=== PATIENT | female | born 1975 | race Caucasian/White ===

== ENCOUNTER 2020-03-25 16:37 | Outpatient (CLI) | payer BC, SELFPAY ==
--- NOTE | ~2020-03-25 | MM_ITS ---
EXAMINATION: MM screening leah BI w daisy HISTORY: Screening TECHNIQUE: Craniocaudal and mediolateral oblique 3-D tomosynthesis images were obtained and synthetic 2-D images were generated. CAD analysis was submitted and interpreted. COMPARISON: Comparison to multiple prior studies sequentially, with oldest reviewed study dated 12/24. BREAST PARENCHYMAL COMPOSITION: The breasts are heterogeneously dense, which may obscure small masses . FINDINGS: There is no evidence of suspicious mass, calcification, or architectural distortion to sugg est malignancy in either breast. There has been no suspicious interval change. IMPRESSION: 1. No mammographic evidence of malignancy. 2. Recommend routine screening mammography in one year. BI-RADS Category 1: Negative Reviewed, dictated and finalized at location A.
== END 2020-03-25 16:38 | disposition home or self-care (01) ==
LOC: ANHIMG 16:40
PROVIDERS: PCP Family Medicine; Visit Provider Family Medicine
DX: Z12.31 Encounter for screening mammogram for malignant neoplasm of breast (principal)
CPT/HCPCS: 77063; 77067

== ENCOUNTER 2020-10-20 19:58 | Emergency (ER) | payer BC, SELFPAY ==
--- NOTE | ~2020-10-20 | XR_ITS ---
EXAMINATION: XR finger 2nd RT min 2V INDICATION: Right second finger pain TECHNIQUE: Four views of the right second finger are obtained. COMPARISON: None available FINDINGS: There is no fracture, dislocation, or subluxation. The bones, soft tissues, and joint space s are normal. IMPRESSION: 1. No acute osseous abnormality. Reviewed, dictated and finalized at location A.
[2020-10-20 20:01] VITALS: BP 139/87; PULSE 100; RESP 18; TEMP 36.5; O2SAT 100
[2020-10-20] MEDS: KETOROLAC 30 MG/ML VIAL (*BKC) IM (21:48)
--- NOTE | 2020-10-20 22:04 | ED.UPPEXIN ---
HPI - Extremity Injury (Upper) General Chief Complaint: Extremity Injury, Upper Stated Complaint: finger injury Time Seen by Provider: 10/20/20 20:06 Source: patient Mode of arrival: ambulatory Limitations: no limitations History of Present Illness HPI narrative: Patient is a 45 year old female who presents with injury to right index finger. She reports injuring while playing ball. She reports attempting to catch ball when extraocular finger. She denies taking otc medication prior to arrival. Patient denies other complaints. Related Data Allergies Allergy/AdvReac Type Severity Reaction Status Date / Time Sulfa (Sulfonamide Allergy Unknown Unknown Verified 12/11/19 15:51 Antibiotics) Review of Systems Review of Systems: Narrative: CONSTITUTIONAL: Denies fever, chills, or sweats. EYES: Denies visual changes, redness, or discharge. ENT: Denies rhinorrhea, congestion, sore throat, or otalgia. CARDIOVASCULAR: Denies chest pain, palpitations, or edema. RESPIRATORY: Denies cough or dyspnea. GASTROINTESTINAL: Denies abdominal pain, nausea, vomiting, or diarrhea. GENITOURINARY: Denies dysuria or hematuria. SKIN: Denies rash or itching. MUSCULOSKELETAL: Right index finger pain NEUROLOGIC: Denies headache, numbness, dizziness, or weakness. PSYCHIATRIC: Denies anxiety or depression. [facility] Past Medical History Medical History Anxiety Asthma Depression Lyme disease Multiple kidney stones Peripheral neuropathy UTI (urinary tract infection) Surgical History Surgical History (Updated 10/20/20 @ 22:12 by DAV Cherry) History of lateral meniscus repair of right knee History of placement of ear tubes Hx of tonsillectomy Family History Family History Mother Depression Grandparent Family history of coronary artery disease Other Hypertension Social History Social History Smoking status: Smoker, status unknown Second hand tobacco smoke exposure: Yes Alcohol intake: current Gender identity (if verbalized by the patient): Male Comments At the time of signature, I have reviewed and agree with nursing past medical, surgical, social, and family history unless otherwise noted. Please see nursing chart for further information. There is no relevant family history pertinent to the presenting complaint. Exam Narrative: Exam Narrative: GENERAL: Well-appearing, well-nourished, and in no acute distress. HEAD: Normocephalic, atraumatic. EYES: EOMI. No redness or drainage. Conjunctiva are normal. ENT: Mucous membranes pink and moist. CHEST: No respiratory distress. HEART: Regular rate and rhythm. MUSCULOSKELETAL: Subungual hematoma to right index finger. EXTREMITIES: Normal range of motion. No edema. SKIN: Warm, dry, no rash. NEURO: No focal deficits. Alert and oriented x3. Gait steady. PSYCH: Normal affect. No signs of depression or anxiety. Course Vital Signs Vital signs: Vital Signs Temperature 36.5 C 10/20/20 20:01 Pulse Rate 100 10/20/20 20:01 Respiratory Rate 18 10/20/20 20:01 Blood Pressure 139/87 10/20/20 20:01 Pulse Oximetry 100 10/20/20 20:01 Temperature 36.5 C 10/20/20 20:01 Pulse Rate 100 10/20/20 20:01 Respiratory Rate 18 10/20/20 20:01 Blood Pressure 139/87 10/20/20 20:01 Pulse Oximetry 100 10/20/20 20:01 Reviewed-patient is informed that they may have pre-hypertension or hypertension based on a blood pressure reading. I recommend the patient call the primary care provider listed on their discharge instructions or a physician of their choice this week to arrange follow-up for further evaluation of possible pre-hypertension or hypertension. MDM - Extremity Injury (Upper) MDM Narrative Medical decision making narrative: Needle trephination performed to the right index finger. Patient
[2020-10-20 22:05] VITALS: BP 127/81; PULSE 81; RESP 18; O2SAT 98
== END 2020-10-20 22:05 | disposition home or self-care (01) ==
PROVIDERS: Emergency Provider Nurse Practitioner; PCP Family Medicine
DX: S60.021A Contusion of right index finger without damage to nail, initial encounter (principal); F41.9 Anxiety disorder, unspecified; J45.909 Unspecified asthma, uncomplicated; F32.9 Major depressive disorder, single episode, unspecified; Z87.442 Personal history of urinary calculi; W21.00XA Struck by hit or thrown ball, unspecified type, initial encounter
CPT/HCPCS: 11740; 73140; 96372; 99283; J1885

== ENCOUNTER 2020-12-23 11:05 | Outpatient (CLI) | payer BC, SELFPAY ==
--- NOTE | ~2020-12-23 | XR_ITS ---
EXAMINATION: XR chest 2V 12/23/2020 11:37 INDICATION: Cough and shortness of breath for one month PROCEDURE: 2 view chest COMPARISON: 07/05/2015 FINDINGS: The lungs are clear. The cardiomediastinal silhouette is within normal limits. There are no pleural effusions. There is no pneumothorax suspected. IMPRESSION: 1: NO ACUTE CARDIOPULMONARY DISEASE. Reviewed, dictated and finalized at location B.
== END 2020-12-23 11:06 | disposition home or self-care (01) ==
PROVIDERS: PCP Family Medicine; Visit Provider Nurse Practitioner Family
DX: R05 Cough (principal)
CPT/HCPCS: 71046

== ENCOUNTER 2021-04-09 14:27 | Outpatient (CLI) | payer BC, SELFPAY ==
--- NOTE | ~2021-04-09 | MM_ITS ---
EXAMINATION: MM screening leah BI w daisy HISTORY: Screening mammogram TECHNIQUE: Craniocaudal and mediolateral oblique 3-D tomosynthesis images were obtained and synthetic 2-D images were generated. CAD analysis was submitted and interpreted. COMPARISON: 03/25/2020, 01/24/2019, 12/28/2017 bilateral digital screening mammogram examinations BREAST PARENCHYMAL COMPOSITION: The breasts are heterogeneously dense, which may obscure small masses . FINDINGS: There is no evidence of suspicious mass, calcification, or architectural distortion to sugg est malignancy in either breast. There has been no suspicious interval change. IMPRESSION: 1. No mammographic evidence of malignancy. 2. Recommend routine screening mammography in one year. BI-RADS Category 1: Negative Reviewed, dictated and finalized at location A.
== END 2021-04-09 14:28 | disposition home or self-care (01) ==
PROVIDERS: PCP Family Medicine; Visit Provider Family Medicine
DX: Z12.31 Encounter for screening mammogram for malignant neoplasm of breast (principal)
CPT/HCPCS: 77063; 77067

== ENCOUNTER 2021-05-14 14:30 | Emergency (ER) | payer BC, SELFPAY ==
[2021-05-14] VITALS (7 sets, daily range): BP systolic 147–150; BP diastolic 95–102; PULSE 101–119; RESP 20–21; TEMP 36.7; O2SAT 93–94
--- NOTE | ~2021-05-14 | XR_ITS ---
EXAMINATION: XR chest 1V portable DATE: 05/14/2021 15:21 INDICATION: Cough and shortness of breath. TECHNIQUE: A single frontal view of the chest was obtained. COMPARISON: Chest 2 views 12/23/2020 FINDINGS: There is mild scarring at the lung apices. No pleural effusion or pneumothorax. The heart s ize is normal. IMPRESSION: 1. Stable mild scarring at the lung apices. Reviewed, dictated and finalized at location A.
--- NOTE | 2021-05-14 15:19 | ED.ASTHMA ---
HPI - Asthma General Chief Complaint: Asthma <Mamie Murillo PA-C - Last Filed: 05/14/21 19:33> Stated Complaint: Asthma <Mamie Murillo PA-C - Last Filed: 05/14/21 19:33> Time Seen by Provider: 05/14/21 15:04 <Mamie Murillo PA-C - Last Filed: 05/14/21 19:33> Source: patient <Mamie Murillo PA-C - Last Filed: 05/14/21 19:33> Mode of arrival: ambulatory <Mamie Murillo PA-C - Last Filed: 05/14/21 19:33> Limitations: no limitations <COLTON Goel Last Filed: 05/14/21 19:33> History of Present Illness HPI Narrative: This is a 45 year old female that presents to the ER for asthma exacerbation. Reports she has been struggling with asthma for the last couple of months. She has to use her Albuterol inhaler multiple times daily. She has not been using her Breo inhaler because she does not think it helps. Reports she has been having some coughing since yesterday which seems to have brought on another exacerbation. Denies fever or chest pain. <Mamie Murillo PA-C - Last Filed: 05/14/21 19:33> Related Data Allergies/Adverse Reactions: Allergies Allergy/AdvReac Type Severity Reaction Status Date / Time Sulfa (Sulfonamide Allergy Unknown Unknown Verified 04/09/21 13:14 Antibiotics) <Mamie Murillo PA-C - Last Filed: 05/14/21 19:33> Review of Systems Review of Systems: All systems reviewed & are unremarkable except as noted in HPI and below <Mamie Murillo PA-C - Last Filed: 05/14/21 19:33> [facility] Past Medical History Medical History: Medical History (Updated 05/15/21 @ 00:00 by Background Daemon) Acute cystitis with hematuria Acute non-recurrent maxillary sinusitis Alopecia Anxiety Anxiety and depression Asthma Asthma exacerbation BMI 29.0-29.9,adult BMI 31.0-31.9,adult BMI 34.0-34.9,adult BMI 35.0-35.9,adult BMI over 35 Chronic fatigue Crushing injury of right lower leg, initial encounter Depression Dietary counseling and surveillance (05/22/18) Encounter for screening for lipoid disorders Hematochezia History of kidney stones History of pre-eclampsia Lyme disease Major depressive disorder, single episode, unspecified Multiple kidney stones Nicotine dependence, unspecified, uncomplicated Peripheral neuropathy Positive Lyme disease serology Tobacco abuse UTI (urinary tract infection) Weight gain <Mamie Murillo PA-C - Last Filed: 05/14/21 19:33> Surgical History Surgical History: Surgical History History of lateral meniscus repair of right knee History of placement of ear tubes Hx of tonsillectomy <Mamie Murillo PA-C - Last Filed: 05/14/21 19:33> Family History Family History: Family History Mother Depression Grandparent Family history of coronary artery disease Father No problems noted. Other Hypertension <Mamie Murillo PA-C - Last Filed: 05/14/21 19:33> Social History Social History: Social History Tobacco type: cigarettes Second hand tobacco smoke exposure: Yes Alcohol intake: former Substance use: former Substance use type: marijuana Additional living arrangements comments: and kids Additional occupation/education comments: self employed Gender identity (if verbalized by the patient): Female Sexual Orientation (if Verbalized by the Patient): Straight or Heterosexual Spiritual care concerns: No Agree to blood products: Yes <Mamie Murillo PA-C - Last Filed: 05/14/21 19:33> Exam Narrative: GENERAL: Well-appearing, well-nourished, and in no acute distress. HEAD: Normocephalic, atraumatic. EYES: EOMI. ENT: Nares clear, no rhinorrhea or epistaxis. Mucous membranes moist. Oropharynx without tonsillar hypertrophy exudate or other lesions. Bilateral TMs pearly syed non-bulging NECK: Suppl
[2021-05-14] MEDS: ALBUTEROL SULFATE NEB 2.5 MG/0.5 ML INH 5 MG INHALATION (15:20)
[2021-05-14] MEDS: IPRATROPIUM BR 0.02% INH SOLN 0.5 MG/2.5 ML VIAL INHALATION (15:20)
[2021-05-14] MEDS: methylPREDNISolone SOD SUCC 125 MG VIAL IV PUSH (15:25)
--- NOTE | 2021-05-14 15:54 | PC.NURSE ---
Pt states she feels slight relief after meds where given
--- NOTE | 2021-05-14 17:15 | ECG_ITS ---
Measurements Intervals [place] Rate: 104 P: 60 DC: 134 QRS: 28 QRSD: 89 T: 54 QT: 384 QTc: 506 Interpretive Statements SINUS TACHYCARDIA CANNOT RULE OUT SEPTAL INFARCT, AGE INDETERMINATE BASELINE ARTIFACT- I, II, III, AVR, AVL, AVF, V1, V3-V6 ABNORMAL ECG Electronically Signed On 05-14-2021 20:09:07 CDT by Waldo Reed D.O.
[2021-05-14 17:45] LABS: Alveolar/Arterial O2 Gradient 69.6 mmHg; Base Excess ABG -0.2 mEq/l (+/-2.0); Carboxyhemoglobin 1.7 % THb (0-2.0); Fractional Inspired Oxygen 24 %; HCO3 ABG 22.9 mEq/l (22.0-26.0); Methemoglobin ABG 0.3 %THb (0-1.5); Oxygen Saturation ABG 93.1 % (95.0-100.0); Oxyhemoglobin 90.3 % THb (90.0-100.0); PCO2 ABG 33.1 mmHg (35.0-45.0); PO2 ABG 62.1 mmHg (80.0-100.0); PO2 FiO2 Ratio Arterial Blood 2.59 %; Reduced Hemoglobin 7.7 %THb (0-5.0); Total Hemoglobin 15.8 g/dL (12.0-18.0); pH ABG 7.457 (7.350-7.450)
[2021-05-14 17:46] LABS: Site Drawn LEFT BRACHIAL
[2021-05-14 17:47] LABS: Device NASAL CANNULA
[2021-05-14 18:12] LABS: Basophils Absolute Auto 0.1 K/mm3 (0.0-0.1); Basophils Percent Auto 0.9 % (0.2-1.2); Eosinophils Absolute Auto 0.3 K/mm3 (0-0.3); Eosinophils Percent Auto 2.4 % (0-4.4); Hemoglobin 15.4 g/dL (12.0-15.0); Immature Granulocyte Absolute 0.11 K/mm3 (0.00-0.031); Immature Granulocyte Percent A 0.8 % (0-0.5); Lymphocytes Absolute Auto 1.45 K/mm3 (0.9-3.2); Lymphocytes Percent Auto 11.1 % (18.3-44.2); Mean Corpuscular HGB Conc 34.2 g/dl (32-36); Mean Corpuscular Hemoglobin 28.8 pg (26-34); Mean Corpuscular Volume 84.1 fl (80-100); Monocytes Absolute Auto 0.3 K/mm3 (0.1-0.6); Monocytes Percent Auto 1.9 % (2.6-8.5); Neutrophils Absolute Auto 10.9 K/mm3 (1.3-6.7); Neutrophils Percent Auto 82.9 % (45.5-73.1); Platelet Count Result 369 k/mm3 (150-375); Red Blood Count 5.35 M/mm3 (4.2-5.4); Red Cell Distribution Width 13.4 % (11.5-14.5); White Blood Count 13.1 K/mm3 (4.5-10.0)
[2021-05-14 18:54] LABS: Anion Gap 13 mmol/L (8-16); Blood Urea Nitrogen 18 mg/dL (7-17); Calcium 9.8 mg/dL (8.4-10.2); Carbon Dioxide 19 mmol/L (22-30); Chloride 105 mmol/L (98-107); Estimated CRCL calculation 110 ml/min; Estimated Glomerular Filt Rate > 60; Glucose 125 mg/dL (65-110); Potassium 4.8 mmol/L (3.4-5.0); Sodium 137 mmol/L (137-145)
== END 2021-05-14 19:51 | disposition home or self-care (01) ==
PROVIDERS: Physician Assistant; Emergency Provider Emergency Medicine; PCP Family Medicine
DX: J45.901 Unspecified asthma with (acute) exacerbation (principal); G62.9 Polyneuropathy, unspecified; F41.9 Anxiety disorder, unspecified; F32.9 Major depressive disorder, single episode, unspecified; F17.210 Nicotine dependence, cigarettes, uncomplicated; Z87.442 Personal history of urinary calculi; Z87.440 Personal history of urinary (tract) infections; R00.0 Tachycardia, unspecified; R94.31 Abnormal electrocardiogram [ECG] [EKG]
CPT/HCPCS: 36415; 36600; 71045; 80048; 82375; 82805; 83050; 85025; 93005; 94640; 96374; 99284; J2930

== ENCOUNTER 2021-10-01 15:06 | Outpatient (CLI) | payer BC, SELFPAY ==
--- NOTE | ~2021-10-01 | XR_ITS ---
EXAMINATION: XR chest 2V 10/01/2021 15:25 INDICATION: Cough and shortness of breath. Chest congestion. History of asthma. PROCEDURE: 2 view chest COMPARISON: Comparison to multiple prior studies sequentially, with oldest reviewed study dated 02/10. FINDINGS: The lungs are clear. The cardiomediastinal silhouette is within normal limits. There are no pleural effusions. There is no pneumothorax suspected. IMPRESSION: 1: NO ACUTE CARDIOPULMONARY DISEASE. Reviewed, dictated and finalized at location B.
== END 2021-10-01 15:07 | disposition home or self-care (01) ==
LOC: ANHIMG 15:10
PROVIDERS: PCP Family Medicine; Visit Provider Family Medicine
DX: J40 Bronchitis, not specified as acute or chronic (principal)
CPT/HCPCS: 71046

== ENCOUNTER 2021-12-21 15:50 | Emergency (ER) | payer BC, SELFPAY ==
--- NOTE | ~2021-12-21 | XR_ITS ---
XR knee LT min 4V DATE: 12/21/2021 16:10 INDICATION: Lateral knee pain. No known injury.. TECHNIQUE: 4 views COMPARISON: None FINDINGS: There is minimal periarticular spurring of the patella. Joint spaces are well preserved. No radiopaque intra-articular loose body or chondrocalcinosis. No fracture or dislocation, periosteal reaction or bone destruction. No joint effusion is evident. IMPRESSION: Minimal patellofemoral osteoarthritis Reviewed, dictated and finalized at location A.
[2021-12-21 16:13] VITALS: BP 153/85; PULSE 117; RESP 17; TEMP 36.7; O2SAT 95
--- NOTE | 2021-12-21 17:16 | ED.LOWEXIN ---
HPI - Extremity Injury (Lower) General Chief Complaint: Extremity Injury, Lower Stated Complaint: L KNEE PAIN Time Seen by Provider: 12/21/21 16:31 History of Present Illness HPI Narrative: 46-year-old female presents the emergency room for evaluation of atraumatic left knee pain. Patient describes the pain is sharp and stabbing is worse when she attempts to ambulate. Patient denies any known injury or trauma. Related Data Home Medications Medication Instructions Recorded Confirmed lamotrigine 25 mg tablet 75 mg PO DAILY 11/12/21 11/12/21 Allergies Allergy/AdvReac Type Severity Reaction Status Date / Time Sulfa (Sulfonamide Allergy Unknown Unknown Verified 11/12/21 14:09 Antibiotics) Review of Systems Review of Systems: CONSTITUTIONAL: Denies fever, chills, or sweats. EYES: Denies visual changes, redness, or discharge. ENT: Denies rhinorrhea, congestion, sore throat, or otalgia. CARDIOVASCULAR: Denies chest pain, palpitations, or edema. RESPIRATORY: Denies cough or dyspnea. GASTROINTESTINAL: Denies abdominal pain, nausea, vomiting, or diarrhea. GENITOURINARY: Denies dysuria or hematuria. SKIN: Denies rash or itching. MUSCULOSKELETAL: Reports left knee pain NEUROLOGIC: Denies headache, numbness, dizziness, or weakness. PSYCHIATRIC: Denies anxiety or depression. [facility] Past Medical History Medical History Acute cystitis with hematuria Acute non-recurrent maxillary sinusitis Adult BMI 32.0-32.9 kg/sq m Alopecia Anxiety Anxiety and depression Asthma Asthma Asthma exacerbation BMI 29.0-29.9,adult BMI 31.0-31.9,adult BMI 34.0-34.9,adult BMI 35.0-35.9,adult BMI 36.0-36.9,adult BMI over 35 Bronchitis Chronic fatigue Crushing injury of right lower leg, initial encounter Depression Dietary counseling and surveillance (05/22/18) Encounter for screening for lipoid disorders Hematochezia History of kidney stones History of pre-eclampsia Lyme disease Major depressive disorder, single episode, unspecified Multiple kidney stones Nicotine dependence, unspecified, uncomplicated Obesity Peripheral neuropathy Positive Lyme disease serology Tobacco abuse UTI (urinary tract infection) Weight gain Surgical History Surgical History History of lateral meniscus repair of right knee History of placement of ear tubes Hx of tonsillectomy Family History Family History Mother Depression Grandparent Family history of coronary artery disease Father No problems noted. Sibling Ovarian cancer Other Hypertension Social History Social History Tobacco type: e-cigarettes/vaping Second hand tobacco smoke exposure: Yes Smoking end date: 10/22/21 Alcohol intake: current Substance use: former Substance use type: marijuana Additional living arrangements comments: and kids Additional occupation/education comments: plant coordinator. Gender identity (if verbalized by the patient): Female Sexual Orientation (if Verbalized by the Patient): Straight or Heterosexual Spiritual care concerns: No Agree to blood products: Yes Exam Narrative: GENERAL: Well-appearing, well-nourished, and in no acute distress. HEAD: Normocephalic, atraumatic. EYES: PERRLA and EOMI. CHEST: Clear to auscultation. No respiratory distress. No wheezes rales or rhonchi HEART: Regular rate and rhythm. No murmur heard. Normal peripheral pulses. ABDOMEN: Soft, nontender, nondistended, normal active bowel sounds. EXTREMITIES: Left knee: Lateral joint line tenderness, unable to fully extend the knee, positive Thessaly test SKIN: Warm, dry, no rash. NEURO: No focal deficits. Alert and oriented x3. PSYCH: Tearful. Course Vital Signs Vital signs: Vital Signs Temperature 36.7 C 12/21/21 16
== END 2021-12-21 17:50 | disposition home or self-care (01) ==
LOC: ANHED 17:23
PROVIDERS: Emergency Provider Nurse Practitioner Family; PCP Family Medicine
DX: M25.562 Pain in left knee (principal); J45.909 Unspecified asthma, uncomplicated; R53.82 Chronic fatigue, unspecified; G62.9 Polyneuropathy, unspecified; E66.9 Obesity, unspecified; Z68.32 Body mass index [BMI] 32.0-32.9, adult; F41.9 Anxiety disorder, unspecified; F32.A Depression, unspecified; Z87.440 Personal history of urinary (tract) infections; Z87.442 Personal history of urinary calculi; Z87.891 Personal history of nicotine dependence
CPT/HCPCS: 73564; 99283

== ENCOUNTER 2021-12-23 16:57 | Outpatient (CLI) | payer BC, SELFPAY ==
[2021-12-23 17:18] LABS: Hematocrit 43.1 % (37.0-47.0); Hemoglobin 14.4 g/dL (12.0-15.0); Mean Corpuscular HGB Conc 33.4 g/dl (32-36); Mean Corpuscular Hemoglobin 28.9 pg (26-34); Mean Corpuscular Volume 86.5 fl (80-100); Mean Platelet Volume 9.4 fl (7.4-10.4); Platelet Count Result 283 k/mm3 (150-375); Red Blood Count 4.98 M/mm3 (4.2-5.4); Red Cell Distribution Width 13.8 % (11.5-14.5); White Blood Count 11.2 K/mm3 (4.5-10.0)
[2021-12-23 17:35] LABS: Alanine Aminotransferase 25 U/L (6-35); Albumin Level 4.2 g/dL (3.5-5.1); Alkaline Phosphatase 73 U/L (38-126); Anion Gap 7 mmol/L (8-16); Aspartate Amino Transferase 23 U/L (14-36); Bilirubin,Total 0.5 mg/dL (0.2-1.3); Blood Urea Nitrogen 16 mg/dL (7-17); Calcium 8.7 mg/dL (8.4-10.2); Carbon Dioxide 25 mmol/L (22-30); Chloride 107 mmol/L (98-107); Estimated Glomerular Filt Rate > 60; Glucose 138 mg/dL (65-110); Hemoglobin A1C 5.4 % (<5.7); Potassium 3.3 mmol/L (3.4-5.0); Sodium 139 mmol/L (137-145)
== END 2021-12-23 16:58 | disposition home or self-care (01) ==
LOC: ANHLAB 16:58
PROVIDERS: PCP Family Medicine; Visit Provider Nurse Practitioner Family
DX: R73.09 Other abnormal glucose (principal); E66.09 Other obesity due to excess calories; F41.9 Anxiety disorder, unspecified; Z68.36 Body mass index [BMI] 36.0-36.9, adult; J45.20 Mild intermittent asthma, uncomplicated
CPT/HCPCS: 36415; 80053; 83036; 84443; 85027

== ENCOUNTER 2022-01-03 16:21 | Outpatient (CLI) | payer BC, SELFPAY ==
[2022-01-03 17:23] LABS: Toxigenic C. Diff NEGATIVE (NEGATIVE)
== END 2022-01-03 16:22 | disposition home or self-care (01) ==
LOC: ANHLAB 16:23
PROVIDERS: PCP Family Medicine; Visit Provider Family Medicine
DX: R19.7 Diarrhea, unspecified (principal)
CPT/HCPCS: 87493

== ENCOUNTER 2022-01-05 17:13 | Outpatient (CLI) | payer BC, SELFPAY ==
[2022-01-05 17:57] LABS: Potassium 3.8 mmol/L (3.4-5.0)
== END 2022-01-05 17:14 | disposition home or self-care (01) ==
PROVIDERS: PCP Family Medicine; Visit Provider Nurse Practitioner Family
DX: E87.6 Hypokalemia (principal)
CPT/HCPCS: 36415; 84132

== ENCOUNTER 2022-03-15 10:22 | Emergency (ER) | payer BC, SELFPAY ==
[2022-03-15 10:45] VITALS: BP 127/87; PULSE 107; RESP 20; TEMP 36.8; O2SAT 97
--- NOTE | 2022-03-15 13:03 | ED.GENADULT ---
HPI - General Adult General Chief complaint: Skin/Abscess/Foreign Body Stated complaint: Tummy Tuck 2 weeks ago, drain came out Time Seen by Provider: 03/15/22 12:38 Source: patient Mode of arrival: ambulatory History of Present Illness HPI narrative: 46 years old white female status post tummy tuck and breast augmentation 2 weeks ago at [facility] Patient pulled her DIMITRI drain accidentally this morning prior to arrival to the emergency room. Patient had a course of cephalexin for 1 week. She denies any fever, chills, nausea, vomiting, pain Related Data Home Medications Medication Instructions Recorded Confirmed duloxetine 30 mg capsule,delayed mg PO 03/15/22 release montelukast 10 mg tablet mg 03/15/22 Allergies Allergy/AdvReac Type Severity Reaction Status Date / Time Sulfa (Sulfonamide Allergy Unknown Unknown Verified 03/15/22 12:42 Antibiotics) Review of Systems Review of Systems: All systems reviewed & are unremarkable except as noted in HPI and below PMFSH Past Medical History Medical History Acute cystitis with hematuria Acute non-recurrent maxillary sinusitis Adult BMI 32.0-32.9 kg/sq m Alopecia Anxiety Anxiety and depression Asthma Asthma Asthma exacerbation BMI 29.0-29.9,adult BMI 31.0-31.9,adult BMI 34.0-34.9,adult BMI 35.0-35.9,adult BMI 36.0-36.9,adult BMI over 35 Bronchitis Chronic fatigue Crushing injury of right lower leg, initial encounter Depression Dietary counseling and surveillance (05/22/18) Encounter for screening for lipoid disorders Hematochezia History of kidney stones History of pre-eclampsia Lyme disease Major depressive disorder, single episode, unspecified Multiple kidney stones Nicotine dependence, unspecified, uncomplicated Obesity Peripheral neuropathy Positive Lyme disease serology Tobacco abuse UTI (urinary tract infection) Weight gain Surgical History Surgical History History of lateral meniscus repair of right knee History of placement of ear tubes Hx of tonsillectomy Family History Family History Mother Depression Grandparent Family history of coronary artery disease Father No problems noted. Sibling Ovarian cancer Other Hypertension Social History Social History Smoking status: Former smoker Tobacco type: e-cigarettes/vaping Second hand tobacco smoke exposure: Yes Smoking end date: 10/22/21 Alcohol intake: current Substance use: former Substance use type: marijuana Additional living arrangements comments: and kids Additional occupation/education comments: plant coordinator. Gender identity (if verbalized by the patient): Female Sexual Orientation (if Verbalized by the Patient): Straight or Heterosexual Spiritual care concerns: No Agree to blood products: Yes Exam Narrative: General appearance: Well-developed, well-nourished Skin: Normal color breast surgical scar looks clean and dry, tummy tuck scar looks clean and dry anteriorly and posteriorly, 5 x 5 mm stoma at the site of the drain opened, moist, no significant discharge at this time. No erythematous changes, no warmth. Head: Normocephalic, nontraumatic Eyes: Clear conjunctiva ENT: Oropharynx normal, ears normal, nose normal Neck: Supple, nontender Chest and respiratory: Airway patent, no respiratory distress, no accessory muscle use Heart: Regular rate/rhythm Abdomen: Soft, nontender, no organomegaly, quiet bowel sounds Vascular: Normal peripheral pulses, normal capillary refill. Musculoskeletal: Normal range of motion, nontender back Neurologic: Alert and oriented ?3, VP [employer] is normal as tested, no gross motor deficit
== END 2022-03-15 14:00 | disposition home or self-care (01) ==
PROVIDERS: Emergency Provider Emergency Medicine; PCP Family Medicine
DX: Z48.03 Encounter for change or removal of drains (principal); F41.9 Anxiety disorder, unspecified; F32.9 Major depressive disorder, single episode, unspecified; J45.909 Unspecified asthma, uncomplicated
CPT/HCPCS: 99282

== ENCOUNTER 2022-07-23 11:16 | Outpatient (CLI) | payer OTHER, BC, SELFPAY ==
--- NOTE | ~2022-07-23 | MM_ITS ---
EXAMINATION: MM scrn leah implant BI w daisy HISTORY: Screening mammogram TECHNIQUE: Craniocaudal and mediolateral oblique 3-D tomosynthesis images with implant displacement a nd synthetic 2-D images were generated. Craniocaudal and mediolateral oblique views of the breasts wi thout implant displacement were obtained using full field digital mammography. CAD analysis was submi tted and interpreted. COMPARISON: 04/05/2021, 03/25/2020, 01/24/2019 bilateral screening mammogram examinations BREAST PARENCHYMAL COMPOSITION: The breasts are heterogeneously dense, which may obscure small masses . FINDINGS: Interval bilateral augmentation mammoplasty since 04/05/2021. There is no evidence of suspic ious mass, calcification, or architectural distortion to suggest malignancy in either breast. There h as been no suspicious interval change. IMPRESSION: 1. No mammographic evidence of malignancy. 2. Recommend routine screening mammography in one year. BI-RADS Category 1: Negative Reviewed, dictated and finalized at location A. ER SEALER
== END 2022-07-23 11:17 | disposition home or self-care (01) ==
LOC: ANHIMG 11:19
PROVIDERS: PCP Family Medicine; Visit Provider Family Medicine
DX: Z12.31 Encounter for screening mammogram for malignant neoplasm of breast (principal)
CPT/HCPCS: 77063; 77067

== ENCOUNTER → 2022-10-04 16:03 | Outpatient (CLI) | payer OTHER, BC, SELFPAY ==
--- NOTE | ~2022-10-04 | XR_ITS ---
EXAM: XR shoulder LT min 2V DATE: 10/04/2022 16:15 HISTORY: S49.92XA - Unspecified injury of left shoulder and upper ... . COMPARISON: None available. FINDINGS: Normal mineralization. No fracture or dislocation. No lytic or blastic lesion. Mild AC coy nt hypertrophy. Mild acromial tip enthesopathy. Mild glenohumeral narrowing and osteophytosis. No ero sofía or periosteal change. Soft tissues within normal limits. IMPRESSION: No acute osseous finding in the left shoulder. Reviewed, dictated and finalized at location K.
== END ==
PROVIDERS: PCP Family Medicine; Visit Provider Nurse Practitioner Family
DX: S49.92XA Unspecified injury of left shoulder and upper arm, initial encounter (principal)
CPT/HCPCS: 73030

== ENCOUNTER 2025-05-20 18:53 | Emergency (ER) | payer OTHER, BC, SELFPAY ==
[2025-05-20 18:54] VITALS: BP 145/99; PULSE 96; RESP 18; TEMP 36.4; O2SAT 98
--- NOTE | 2025-05-20 18:59 | PC.NURSE ---
Patient asked about wait time and this RN informed her I was unable to give her wait time. Patient states im leaving and driving myself to [employer]. Patient informed of risks of leaving AMA and she states 'I dont care. You guys dont do anything anyway
== END 2025-05-20 20:03 | disposition left against medical advice (07) ==
PROVIDERS: PCP Family Medicine
DX: R10.A1 Flank pain, right side (principal)
CPT/HCPCS: 99199

== ENCOUNTER 2025-07-06 13:05 | Outpatient (CLI) | payer OTHER, BC, SELFPAY ==
--- NOTE | ~2025-07-06 | XR_ITS ---
XR abdomen/kub 1V 07/06/2025 13:25 Indication: Hematuria Procedure: KUB Comparison: No prior studies for comparison. Findings: Bowel gas pattern nonobstructive. There are punctate left renal stones. There is an IUD in the pelvis. Nonobstructive bowel gas pattern. No acute osseous abnormality. Impression: 1: Left nephrolithiasis. Reviewed, dictated and finalized at location O. [facility] PSYCHIATRIST Impression: 1: Left nephrolithiasis.
--- NOTE | ~2025-07-06 | CT_ITS ---
EXAMINATION: CT abdomen pelvis wo/w con DATE: 07/06/2025 13:52 INDICATION: Hematuria, unspecified. TECHNIQUE: Computed tomography (CT) of the abdomen and pelvis was performed without and with intravenous contrast using a total of 130 mL Omnipaque-350 intravenous contrast with a double-bolus technique for simultaneous opacification of the renal parenchyma and renal collecting system. Automated exposure control and iterative reconstruction technique were employed. The dose- length product was 700.71 mGy-cm. COMPARISON: CT abdomen and pelvis 06/25/2012 FINDINGS: The visualized portions of the lung bases demonstrate mild atelectasis. There is a 4 mm nodule in right lower lobe, likely benign. No pleural effusion. There are bilateral breast implants. The heart size is normal. No pericardial effusion. The liver, gallbladder, spleen, pancreas, and adrenal glands are normal. There is cortical thinning of right kidney. There are 2 stones in left kidney measuring up to 5 mm. The ureters are not well opacified distally, but are normal. The bladder is not well distended. There is an intrauterine device in expected position. There is a 3.4 cm hemorrhagic cyst in left ovary. There are no dilated loops of bowel. The appendix is normal. There are no pathologically enlarged lymph nodes. There is no free intraperitoneal fluid. There is mild thoracic and lumbar spondylosis. IMPRESSION: 1. Nonobstructing left kidney stones. Reviewed, dictated and finalized at location E. IAC CATH RN
== END 2025-07-06 13:06 | disposition home or self-care (01) ==
PROVIDERS: PCP Family Medicine; Visit Provider Nurse Practitioner Adult Health
DX: N20.0 Calculus of kidney (principal); R31.9 Hematuria, unspecified; N11.9 Chronic tubulo-interstitial nephritis, unspecified
CPT/HCPCS: 74018; 74178; Q9967

== ENCOUNTER 2025-07-07 08:33 | Outpatient (CLI) | payer OTHER, BC, SELFPAY ==
[2025-07-07 08:52] LABS: Hematocrit 47.1 % (37.0-47.0); Hemoglobin 15.9 g/dL (12.0-15.0); Immature Granulocyte Percent A 0.5 % (0-0.5); Lymphocytes Absolute Auto 1.55 K/mm3 (0.9-3.2); Mean Corpuscular HGB Conc 33.8 g/dl (32-36); Mean Corpuscular Hemoglobin 29.3 pg (26-34); Mean Corpuscular Volume 86.7 fl (80-100); Nucleated Red Blood Cells Absolute Auto 0.000 K/mm3 (0.0-0.012); Nucleated Red Blood Cells Perc 0.0 % (0.0-0.2); Platelet Count Result 262 k/mm3 (150-375); Red Blood Count 5.43 M/mm3 (4.2-5.4); White Blood Count 7.4 K/mm3 (4.5-10.0)
--- OUTSIDE RECORDS SUMMARY | 2025-07-07 08:59 | XMS_ITS | Clinical Summary ---
Author Organization [facility] Address [address] [place] [address] Care Team Providers Care Railway Signal Operator Name Role Phone Imer Mccain MD Unavailable [phone] Terence Bazan MD Unavailable [phone] Sylvain Mancia MD Primary Care Provider [phone] Source Comments [facility],non-owned Affiliates and Associated Physician Practices is amultiple site organization consisting of ambulatory clinics and hospital sitesin [place], [place], [place] and [place]. This disclosure is being madepursuant to the Care Everywhere program and may not contain all information available regarding this patient. Last updated 18.[facility] Allergies Active Allergy Reactions Criticality Noted Date Comments Sulfa Drugs Rash Medium 11/08/2022 Medications * Be aware that medications may not be up to date on this document. Alwaysverify current medications with the patient. montelukast (Singulair) 10 MG tablet Take 1 (one) tablet by mouth at bedtime Active budesonide-form oterol (Symbicort) 80-4.5 MCG/ACT inhaler Inhale 2 (two) puffs by mouth 2 times daily Active amphetamine-dex troamphetamine (Adderall) 15 MG tablet 4 Active predniSONE (Deltasone) 20 MG tablet TAKE 2 TABLETS BY MOUTH EVERY DAY IN THE MORNING FOR 4 DAYS Active doxycycline hyclate 100 MG tablet 5 Active levonorgestrel (Mirena) 20 MCG/DAY IUD by Intrauterine route as directed Active Active Problems Patient Care Coordination No te Formatting of this note migh t be different from the original. CONSULT WITH CO-MANAGEMENT Problem Noted Date Diagnosed Date Dysplasia of cervix, low grade (AIDE 1) 5 ASCUS with positive high risk HPV cervical 08/05 Asthma 06/27/2024 MAYANK (stress urinary incontinence, female) 2022 POP-Q stage 2 cystocele 08/26/2022 IUD contraception 04/08/2020 Overview (05/28/2021): Place 10/2018 Acne 01/15/2016 Dermatofibroma 01/15/2016 History of basal cell carcinoma (BCC) 01/15/2016 High-risk 01/28/2015 Calculus of kidney 01/22/2015 History of recurrent urinary tract infection 03/2015 Lyme disease 12/17/2013 Phenylketonuria (PKU) 12/17/2013 Skin benign neoplasm 12/24/2012 Basal cell carcinoma (BCC) of eyelid 11/05/2012 Resolved Problems Problem Noted Date Diagnosed Date Resolved Date Elderly multigravida with an tepartum condition or complication 12/20/2013 04/08/2020 Family History Medical History Relation Name Comments Cancer Maternal Grandmother Cancer Paternal Grandmother Relation Name Status Comments Father Alive Maternal Grandmother Mother Alive Paternal Grandmother Social History Tobacco Use Types Packs/Day Years Used Date Smoking Tobacco: Every Day Cigarettes 0.3 10 Smokeless Tobacco: Never Tobacco Cessation:Ready to Q uit: Not Asked; Counseling Given: Not Answered Alcohol Use Standard Drinks/Week Comments Yes 0 (1 standard drink = 0.6 oz pur e alcohol) Socially Comments No Sex and Gender Information Value Date Recorded Sex Assigned at Not on file Legal Sex Female 5:49 AM LAWNMOWER REPAIR MECHANIC Gender Identity Not on file Sexual Orientation Not on file Last Filed Vital Signs Vital Sign Reading Time Taken Comments Blood Pressure 152/96 08/14/2024 3:53 PM LAWNMOWER REPAIR MECHANIC Pulse 106 08/14/2024 3:53 PM LAWNMOWER REPAIR MECHANIC Temperature 36.6 C (97.9 F) 11/10/2022 7:37 AM CDT Respiratory Rate 16 11/10/2022 7:37 AM CDT Oxygen Saturation 90% 11/10/2022 7:37 AM CDT Inhaled Oxygen Concentration - - Weight 74.4 kg (164 lb) 08/14/2024 3:53 PM LAWNMOWER REPAIR MECHANIC Height 162.6 cm (5' 4) 08/14/2024 3:53 PM LAWNMOWER REPAIR MECHANIC Body Mass Index 28.15 08/14/2024 3:53 PM LAWNMOWER REPAIR MECHANIC Plan of Treatment Upcoming Encounters Date Type Department Care Team (Late st Contact Info) Description 08/13/2025 4:15 PM LAWNMOWER REPAIR MECHANIC Office Visit [facility] - REGRINDER [address] [facility] [address] [place] [address] Imer Mccain MD [address] [facility] [address] [place] [address] Health Maintenance Due Date Last Done Comments COLOGUARD (AGES 45-75) - COLON CA SCREENING 1975 COLON MONITORING 1975 COLONOSCOPY - COLON CA SCREENING 1975 CT COLONOGRAPHY - COLON CA SCREENING 1975 Colorectal Cancer Screening 1975 FIT - COLON CA SCREENING 1975 FLEX SIG - COLON CA SCREENING 1975 LIPID TESTING 1975 HIV SCREENING 1990 HEPATITIS C SCREENING 08/19/1993 DTAP/TDAP/TD VACCINES (1 - Tdap) 1994 HEPATITIS B VACCINE (1 of 3 - 19+ 3-dose series) 1994 SCREENING FOR DIABETES 06/01/2022 MAMMOGRAM 04/09/2023 04/09/2021, 01/14, 12/25/2015 (Done Outside Per Report), Additional history exists DEPRESSION SCREENING 07/17/2024 COVID-19 VACCINE (2 - 2024- season) 2025 10/19/2020 INFLUENZA VACCINE (#1) 2025 PAP with HPV 08/14/2025 07/31/2024, 05/17, 12/17/2015 ZOSTER VACCINE (1 of 2) 2025 HIB VACCINE Aged Out No longer eligi ble based on patient's age to complete this topic HPV VACCINE Aged Out No longer eligi ble based on patient's age to complete this topic MENINGOCOCCAL (Group B) VACCINE SHARED DECISION-MAKING Aged Out No longer eligible based on patient's age to complete this topic MENINGOCOCCAL GROUPS A/C/Y/W VACCINE Aged Out No longer eligible based on patient's age to complete this topic Medical Devices Implanted Type Area Engraver Block Device Identifier Shelf Expiration Date Model / Serial / Lot Sys Ureth Supp Obtryx Midurethral Trnstr Implanted:Qty: 1 on 11/09/2022 by Terence Bazan MD at [facility] N/A: Urethra [employer] [facility] 08/08/2025 [id number] / / [id number] Procedures Procedure Name Priority Date/Time Associated Diagnosis Comments PAP IG LB +HPV APTIMA REFLEX 16,18/45 Routine 07/31/2024 4:39 PM LAWNMOWER REPAIR MECHANIC Well woman exam Screening for cervical cancer MAMMO BILAT SCREENING Routine 04/09/2021 Encounter for screening mammogram for malignant neoplasm of breast from Last 3 Months or Most Recently Relevant to Health Maintenance Results * (ABNORMAL) PAP IG LB +HPV APTIMA REFLEX 16,18/45 (07/31/2024 4:39 PM LAWNMOWER REPAIR MECHANIC) Diagnosis Comment(A) [facility] ACCOUNT BILL Comment: EPITHELIAL CELL ABNORMALITY. ATYPICAL SQUAMOUS CELLS OF UNDETERMINED SIGNIFICANCE (ASC-US). Recommendation Comment(A) [facility] ACCOUNT BILL Comment:Suggest follow up as clinically appropriate. Specimen Adequacy Comment [facility] ACCOUNT BILL Comment: Satisfactory for evaluation. Endocervical and/or squamous metaplastic cells (endocervical component) are present. Clinician Provided ICD10 Comment [facility] ACCOUNT BILL Comment: Z01.419 Z12.4 Performed by Comment [facility] ACCOUNT BILL Comment:Amish Chapman, Hazmat Technician (ASCP) Electronically Signed by Comment [facility] ACCOUNT BILL Comment:Hansa Hidalgo MD, Pathologist Comment . [facility] ACCOUNT BILL Pathologist Provided ICD10 Comment [facility] ACCOUNT BILL Comment:R87.610 Note Comment [facility] ACCOUNT BILL Comment: The Pap smear is a screening test designed to aid in the detection of premalignant and malignant conditions of the uterine cervix. It is not a diagnostic procedure and should not be used as the sole means of detecting cervical cancer. Both false-positive and false-negative reports do occur. IGLBP CPT Code Automation Comment [facility] ACCOUNT BILL Comment: This liquid based ThinPrep(R) pap test was screened with the use of an image guided system. Human papillomavirus Aptima Positive(A ) Negative [facility] ACCOUNT BILL Comment: This nucleic acid amplification test detects fourteen high-risk HPV types (16,18,31,33,35,39,45,51,52,56,58,59,66,68) without differentiation. HPV Genotype Reflexed Comment [facility] ACCOUNT BILL Comment:Criteria not met, HP V Genotype not performed. PART OF UTERINE CERVIX / Unknown 07/31/2024 4:39 PM LAWNMOWER REPAIR MECHANIC 07/31/2024 Comment:Cervix Release to banner Narrative [facility] ACCOUNT BILL - 08/05/2024 3:07 PM LAWNMOWER REPAIR MECHANIC Performed at: - [facility] [id number] Alcoholism Worker: Hansa Hidalgo MD, Phone: [phone] Performed at: - [facility] [id number] Alcoholism Worker: Hansa Hidalgo MD, Phone: [phone] Specimen Comment: [id number] Specimen Comment: No. of containers..01 ThinPrep Vial Imer Mccain MD LAB - PATHOLOGY[facility] Final Result [facility] ACCOUNT BILL [address] [place] [address] * MAMMO BILAT SCREENING (04/09/2021) Anatomical Region Laterality Modality Breast Bilateral Mammography 04/09/2021 us Imer Mccain MD MAMMO ORDERABLES Final Result from Last 3 Months or Most Recently Relevant to Health Maintenance Insurance [facility] [place] Address: [facility] [address] [place] [address] ANTH Care Teams Railway Signal Operator Relationship Specialty Start Date End Date Sylvain Mancia MD [address] [place] [address] PCP - General Family Medicine 11/09/22 Imer Mccain MD [facility] [address] Obstetrics and Gynecology 08/26/22 Terence Bazan MD [address] [facility] [address] [place] [address] Consulting Physician Urogynecology 08/26/22
--- OUTSIDE RECORDS SUMMARY | 2025-07-07 08:59 | XMS_ITS | Encounter Summary ---
Author Organization [facility] Address [address] [place] [address] Care Team Providers Care Naturopath Name Role Phone Imer Mccain MD Unavailable [phone] Terence Bazan MD Unavailable [phone] Sylvain Mancia MD Primary Care Provider [phone] Encounter Details Date Type Department Care Team (Late Contact Info) Description 11/29/2023 Lab Requisition [facility] - DermPath Lab [address] [facility] [place] [phone] Sindy Cordoba MD [address] [facility] [address] [place] [address] Social History Tobacco Use Types Packs/Day Years Used Date Smoking Tobacco: Every Day Cigarettes 0.3 10 Smokeless Tobacco: Never Alcohol Use Standard Drinks/Week Comments Yes 0 (1 standard drink = 0.6 oz pur e alcohol) Socially Comments No Sex and Gender Information Value Date Recorded Sex Assigned at Not on file Legal Sex Female 5:49 AM SAND MIXER OPERATOR Gender Identity Not on file Sexual Orientation Not on file documented as of this encounter Plan of Treatment Upcoming Encounters Date Type Department Care Team (Late Contact Info) Description 08/13/2025 4:15 PM SAND MIXER OPERATOR Office Visit [facility] - RANCH MANAGER [address] [address] [place] [address] Imer Mccain MD [address] [place] [address] [place] [address] documented as of this encounter Procedures Procedure Name Priority Date/Time Associated Diagnosis Comments DERMATOPATHOLOGY Routine 11/29/2023 1:55 PM CDT documented in this encounter Results * DERMATOPATHOLOGY (11/29/2023 1:55 PM CDT) Case Report Dermatopathology Report Case: [id number] Authorizing Provider: Sindy Cordoba MD Collected: 11/29/2023 01:55 PM Ordering Location: [facility] - Received: 11/30/2023 01:38 PM DermPath Lab Pathologist: Candida Azul MD Specimen: Skin, right cheek 4 5:21 PM CDT DERMATOPATHOLOGY LABORATORY Final Diagnosis Specimen A. SKIN, right cheek: INTRADERMAL MELANOCYTIC NEVUS (D22.39) 4 5:21 PM CDT DERMATOPATHOLOGY LABORATORY at 1721 CDT Clinical History R/o BCC, Nevus 4 5:21 PM CDT DERMATOPATHOLOGY LABORATORY Gross Description Specimen A: Received is one formalin filled container labeled with the patient's name and designated right cheek. The specimen consists of a shave biopsy measuring 4x3x1 mm. Jar 0. 4 5:21 PM CDT DERMATOPATHOLOGY LABORATORY Microscopic Description Specimen A. SKIN, right cheek: There are nests of cytologically bland melanocytes within the dermis that mature with depth. 4 5:21 PM CDT DERMATOPATHOLOGY LABORATORY Disclaimer An external and internal positive and negative controls are appropriate for the histochemical, immunohistochemical and immunofluorescence stain(s) in this case (if any), except where stated explicitly. The performance characteristics of the stain(s) cited in this report were developed and its performance characteristic determined by the Dermatopathology Laboratory at [facility], directed by Dr. Sera Azul. These tests need not be, and therefore are not, approved by the [place] Food and Drug Administration. The tests are used for clinical purposes. Billing Codes Specimen Charges Stain Charges 16712 1 4 5:21 PM CDT DERMATOPATHOLOGY LABORATORY Embedded Images 4 5:21 PM CDT DERMATOPATHOLOGY LABORATORY Pathology/Cytolo gy TISSUE SPECIMEN FROM SKIN / Unknown 11/29/2023 1:55 PM CDT 11/30/2023 1:38 PM CDT us Sindy Cordoba MD LAB - PATHOLOGY/CYTOLOGY ORD ERABLES Final Result DERMATOPATHOLOGY LABORATORY [facility] - Department of Dermatology [address], [address] [phone] documented in this encounter Visit Diagnoses Not on filedocumented in this encounter Care Teams Naturopath Relationship Specialty Start Date End Date Sylvain Mancia MD [address] [place] [phone] PCP - General Family Medicine 11/09/22 Imer Mccain MD [facility] [address] [phone] Obstetrics and Gynecology 08/26/22 Terence Bazan MD [address] [facility] [address] [place] [address] Consulting Physician Urogynecology 08/26/22 documented as of this encounter
--- OUTSIDE RECORDS SUMMARY | 2025-07-07 08:59 | XMS_ITS | Clinical Summary ---
Author Organization [facility] reMail Address [address] [place] [address] Care Team Providers Care Shuttle Spotter Name Role Phone Sylvain Mancia MD Primary Care Provider + [phone] Allergies Active Allergy Reactions Criticality Noted Date Comments Ceftriaxone Hives,Flushing (skin) Medium 09/09/2024 Sulfa (Sulfonamide Antibiotics) Rash Medium 10/16 Medications montelukast (SINGULAIR) 10 mg tablet Take 1 tablet (10 mg total) by mouth nightly 11/24/19 23 Active dextroampheta mine-amphetam ine (ADDERALL) 15 mg tablet Take 1 tablet (15 mg total) by mouth 2 (two) times a day after breakfast and lunch TAKE 1 TABLET BY MOUTH TWICE DAILY 4 TO 6 HOURS APART 07/18/[address] (CYMBALTA) 20 mg capsule Take 1 capsule (20 mg total) by mouth daily 09/09/19 25 Active triamcinolone (KENALOG) 0.1 % cream Apply to affected area 1-2 times daily as needed. Avoid face and groin. 30 g 10/17/19 25 Active HYDROcodone-a cetaminophen (NORCO) 5-325 mg per tabletIndicat ions:Pain Take 1 tablet by mouth every 6 (six) hours as needed for pain 20 tablet 05/21/20 25 Active levoFLOXacin (LEVAQUIN) 500 mg tabletIndicat ions:Urinary Tract/Genitou rinary Infection Take 1 tablet (500 mg total) by mouth daily 10 tablet 05/21/20 25 Active ondansetron (ZOFRAN) 4 mg tablet Take 1 tablet (4 mg total) by mouth every 6 (six) hours 20 tablet 05/21/20 25 Active budesonide-fo rmoteroL (SYMBICORT) 160-4.5 mcg/actuation inhaler Inhale 2 puffs 2 (two) times a day Rinse mouth with water after use. Do not swallow. 1 each 06/18/20 25 Active albuterol 5 mg/mL nebulizer solution Take 0.5 mL (2.5 mg total) by nebulization every 6 (six) hours as needed for wheezing 20 mL 06/18/20 25 026 Active albuterol HFA (PROVENTIL HFA,VENTOLIN HFA,PROAIR HFA) 90 mcg/actuation inhaler Inhale 2 puffs every 4 (four) hours as needed for wheezing 6.7 g 06/18/20 25 026 Active budesonide-fo rmoteroL (SYMBICORT) 160-4.5 mcg/actuation inhaler Inhale 2 puffs 2 (two) times a day Rinse mouth with water after use. Do not swallow. 1 each 09/13/19 25 025 Discontinued azithromycin (ZITHROMAX) 250 mg tablet Take 2 tablets the first day, then 1 tablet daily for 4 days. 6 tablet 10/04/19 25 025 Discontinued(T herapy completed) azithromycin (Zithromax) 250 mg tabletIndicat ions:Upper Respiratory/H EENT Infection Take 1 tablet (250 mg total) by mouth daily for 4 days 4 tablet 06/18/20 25 025 predniSONE (DELTASONE) 20 mg tablet Take 3 tablets (60 mg) by mouth daily for 5 days 15 tablet 06/18/20 25 025 Active Problems Problem Noted Date Diagnosed Date Acute hypoxic respiratory failure 09/10/2024 Shortness of breath 09/10/2024 Dermatofibroma 01/15/2016 History of basal cell carcinoma (BCC) 01/15/2016 Acne 01/15/2016 High-risk 01/28/2015 Lyme disease 01/22/2015 History of recurrent urinary tract infection 03/2015 Calculus of kidney 01/22/2015 Skin benign neoplasm 12/24/2012 Basal cell carcinoma (BCC) of eyelid 11/05/2012 Encounters Date Type Department Care Team Description 06/18/2025 8:44 PM VACUUM EVAPORATION OPERATOR - 06/19/2025 12:11 AM [facility] Emergency [facility] Emergency Department [facility] [place] [id number] Benja Masters MD Pneumonia of right lower lobe due to infectious organism (Primary Dx); Moderate asthma with acute exacerbation, unspecified whether persistent Discharge Disposition: Discharge to home or self care 05/20/2025 10:47 PM VACUUM EVAPORATION OPERATOR - 05/21/2025 1:53 AM [facility] Emergency [facility] Emergency Department [address] [place] [phone] Olu Maya MD Acute pyelonephritis (Primary Dx) Discharge Disposition: Discharge to home or self care from Last 3 Months Surgical History Surgery Date Site/Laterality Comments HAND SURGERY Hand Surgery - screws in ring finger left hand 2012 at [facility] (Added by TW Conv) MOHS SURGERY Mohs Micrographic Surgery Nose - 2013 @ [facility] (Added by TW Conv) KNEE SURGERY Knee Surgery - 2012 right knee had meniscus tear (Added by TW Conv) [place] LITHOTRIPSY XTRCORP SHOCK WAVE Renal Lithotripsy - 2012 & 2008 (Added by TW Conv) [place] TONSILLECTOMY & ADENOIDEC SALOME <AGE 12 Tonsillectomy With Adenoidectomy - at 8 years old (Added by TW Conv) Medical History Medical History Date Comments Malignant neoplasm of skin Skin cancer - (Added by TW Conv) Family History Medical History Relation Name Comments Skin cancer Maternal Grandmother Family history of skin cancer - (Added by TW Conv) Skin cancer Paternal Grandmother Family history of skin cancer - (Added by TW Conv) Relation Name Status Comments Maternal Grandmother Paternal Grandmother Social History Tobacco Use Types Packs/Day Years Used Date Smoking Tobacco: Unknown Tobacco Cessation:Counseling Given: Not Answered [facility] Utilities Answer Date Recorded In the past 12 months has e electric, gas, oil, or water company threatened to shut off services in your home? No 09/11/2024 Social Connection and Isolation Panel Answer Date Recorded In a typical week, how many times do you talk on the phone with family, friends, or neighbors? More than three times a week 09/11/2024 How often do you get togethe r with friends or relatives? Never 09/11/2024 How often do you attend chur ch or yazidi services? Never 09/11/2024 Do you belong to any clubs o r organizations such as rastafarian groups, unions, fraternal or athletic groups, or school groups? No 09/11/2024 How often do you attend meet ings of the clubs or organizations you belong to? Never 09/11/2024 Are you , , di vorced, , never , or living with a partner? 09/11/2024 Overall Financial Resource Strain (CARDIA) Answe r Date Recorded How hard is it for you to pa y for the very basics like food, housing, medical care, and heating? Not hard at all 09/11/2024 Hunger Vital Sign Answer Date Recorded Within the past 12 months, y ou worried that your food would run out before you got the money to buy more. Never true 09/11/19 25 Within the past 12 months, t he food you bought just didn't last and you didn't have money to get more. Never true 09/11/2024 PRAPARE - Transportation Answer Date Re corded In the past 12 months, has l ack of transportation kept you from medical appointments or from getting medications? No 08/18 In the past 12 months, has l ack of transportation kept you from meetings, work, or from getting things needed for daily living? No 09/11/2024 Housing Stability Vital Sign Answer Darwin e Recorded In the last 12 months, was t here a time when you were not able to pay the mortgage or rent on time? No 09/11/2024 In the past 12 months, how m any times have you moved where you were living? 0 09/11/2024 At any time in the past 12 m [facility], were you homeless or living in a [place] facility (including now)? No 09/11/2024 Personal Safety Answer Date Recorded Have you ever been in or are you currently in a harmful physical or emotional relationship or is someone making you feel afraid or unsafe? Denies 06/18/2025 Comments Unknown Sex and Gender Information Value Date Recorded Sex Assigned at Not on file Legal Sex Female 3:56 AM VACUUM EVAPORATION OPERATOR Gender Identity Not on file Sexual Orientation Not on file Last Filed Vital Signs Vital Sign Reading Time Taken Comments Blood Pressure 136/81 06/19/2025 12:00 AM VACUUM EVAPORATION OPERATOR Pulse 86 06/19/2025 12:00 AM VACUUM EVAPORATION OPERATOR Temperature 36.7 C (98.1 F) 06/19/2025 12:00 AM VACUUM EVAPORATION OPERATOR Respiratory Rate 20 06/19/2025 12:00 AM VACUUM EVAPORATION OPERATOR Oxygen Saturation 92% 06/19/2025 12:00 AM VACUUM EVAPORATION OPERATOR Inhaled Oxygen Concentration - - Weight 70.3 kg (155 lb) 06/18/2025 8:39 PM VACUUM EVAPORATION OPERATOR Height 162.6 cm (5' 4) 06/18/2025 8:39 PM VACUUM EVAPORATION OPERATOR Body Mass Index 26.61 06/18/2025 8:39 PM VACUUM EVAPORATION OPERATOR Plan of Treatment Health Maintenance Due Date Last Done Comments Cervical Cancer Screening 1975 Colon Cancer Screening-Colonoscopy 1975 Depression Screening 1975 Hepatitis C Screening 1975 Hepatitis B Screening 1993 Regular Well Visit/Exam 18-64 1993 Pneumococcal vaccine <65 (1 of 2 - PCV) 1994 Breast Cancer Screening-Mammogram 04/09/2022 04/09/2021, 01/24/2019, 12/25/2015 Covid-19 Vaccine (2 - 2024- season) 03/17/202511/2020 Influenza Vaccine (#1) 2025 DTaP/Tdap/Td Vaccine (2 - Td or Tdap) 07/19/203209/2022 Procedures Procedure Name Priority Date/Time Associated Diagnosis Comments TROPONIN T HIGH-SENSITIVITY 2-HOUR Timed 06/18/2025 10:59 PM VACUUM EVAPORATION OPERATOR XR CHEST PA LATERAL 2 VIEWS ED 06/18/2025 9:55 PM VACUUM EVAPORATION OPERATOR EGFR STAT 06/18/2025 8:46 PM VACUUM EVAPORATION OPERATOR DIFFERENTIAL AUTO STAT 06/18/2025 8:4 6 PM VACUUM EVAPORATION OPERATOR TROPONIN T HIGH-SENSITIVITY SERIES (BASELINE, 2HR, 4HR, 6HR) STAT 06/18/2025 8:46 PM VACUUM EVAPORATION OPERATOR CBC WITH AUTO DIFFERENTIAL STAT 06/18/2025 8:46 PM VACUUM EVAPORATION OPERATOR COMPREHENSIVE METABOLIC PANEL STAT 06/18/2025 8:46 PM VACUUM EVAPORATION OPERATOR RESPIRATORY PATHOGEN PANEL STAT 06/18/2025 8:46 PM VACUUM EVAPORATION OPERATOR ECG 12-LEAD STAT 06/18/2025 8:42 PM VACUUM EVAPORATION OPERATOR RESPIRATORY PATHOGEN PANEL STAT 05/21/2025 12:44 AM VACUUM EVAPORATION OPERATOR CT ABDOMEN PELVIS W CONTRAST ED 05/21/2025 12:39 AM VACUUM EVAPORATION OPERATOR POCT HCG, URINE Routine 05/20/2025 9:02 PM VACUUM EVAPORATION OPERATOR URINALYSIS, MICROSCOPIC ONLY STAT 05/20/2025 8:56 PM VACUUM EVAPORATION OPERATOR URINALYSIS AND REFLEX TO MICROSCOPIC AND CULTURE STAT 05/20/2025 8:56 PM VACUUM EVAPORATION OPERATOR EGFR STAT 05/20/2025 8:43 PM VACUUM EVAPORATION OPERATOR DIFFERENTIAL AUTO STAT 05/20/2025 8:4 3 PM VACUUM EVAPORATION OPERATOR LIPASE STAT 05/20/2025 8:43 PM VACUUM EVAPORATION OPERATOR COMPREHENSIVE METABOLIC PANEL STAT 05/20/2025 8:43 PM VACUUM EVAPORATION OPERATOR CBC WITH AUTO DIFFERENTIAL STAT 05/20/2025 8:43 PM VACUUM EVAPORATION OPERATOR ECG 12-LEAD STAT 05/20/2025 8:24 PM VACUUM EVAPORATION OPERATOR from Last 3 Months Results * Troponin T high-sensitivity 2-hour (06/18/2025 10:59 PM VACUUM EVAPORATION OPERATOR) Trop T hs <6 <=14 ng/L Comment: Interpretive Data For further hscTnT resources including the diagnostic algorithm and an aid in interpretation, copy and paste this link: https://nrl.testcatalog.org/show/hsTrop Current Interpretive Data last revised 2020. Trop T hs delta 0 ng/L [facility] Trop T hs interp Insignificant [facility] Blood 06/18/2025 10:5 9 PM VACUUM EVAPORATION OPERATOR 06/18/2025 11:02 PM VACUUM EVAPORATION OPERATOR us Selina Villalobos MD LAB BLOOD ORDERABLES Fin al Result [facility] [address] Department [place] [address] * XR Chest PA Lateral 2 Views (If patient hemodynamically stable and ambulatory) (06/18/2025 9:55 PM VACUUM EVAPORATION OPERATOR) Anatomical Region Laterality Modality Body, Chest N/A Computed Radiogr aphy 06/19/2025 7:47 AM VACUUM EVAPORATION OPERATOR Impressions 06/19/2025 7:47 AM VACUUM EVAPORATION OPERATOR Clear lungs. No pleural effusion or pneumothorax. Heart size and mediastinal contours within normal limits. Electronically signed by: Daniel Suarez M.D. Narrative 06/19/2025 7:47 AM VACUUM EVAPORATION OPERATOR EXAMINATION: 2 view chest radiograph Procedure Note Daniel Suarez MD - 06/19/2025 EXAMINATION: 2 view chest radiograph IMPRESSION: Clear lungs. No pleural effusion or pneumothorax. Heart size and mediastinal contours within normal limits. Electronically signed by: Daniel Suarez M.D. us Benja Masters MD IMG XR PROCEDURES Final Re sult * Troponin T high-sensitivity series (baseline, 2hr, 4hr, 6hr) (06/18/2025 8:46 PM VACUUM EVAPORATION OPERATOR) Trop T hs 6 <=14 ng/L Comment: Interpretive Data For further hscTnT resources including the diagnostic algorithm and an aid in interpretation, copy and paste this link: https://nrl.testcatalog.org/show/hsTrop Current Interpretive Data last revised 2020. Blood 06/18/2025 8:46 PM VACUUM EVAPORATION OPERATOR 06/18/2025 8:50 PM VACUUM EVAPORATION OPERATOR us Benja Masters MD LAB BLOOD ORDERABLES Final Result Performing Organization Address City/[facility]/ZIP Co de Phone Number [facility] [address] [place] [address] * eGFR (06/18/2025 8:46 PM VACUUM EVAPORATION OPERATOR) eGFR >90 >=60 mL/min/1. 73 m2 Comment: Interpretive Data Reference Interval Normal >/= 90 mL/min/1.73m2 Mildly decreased* 60 - 89 mL/min/1.73m2 Mildly to moderately decreased 45 - 59 mL/min/1.73m2 Moderately to severely decreased 30 - 44 mL/min/1.73m2 Severely decreased 15 - 29 mL/min/1.73m2 Kidney Failure < 15 mL/min/1.73m2 *Relative to young adult level Estimated glomerular filtration rate is determined by the 2020 CKD-EPI equation recommended by the National Kidney Foundation (A Unifying Approach to GFR Estimation: Recommendations of the NKF-ASK Task Force on Reassessing the Inclusion of Race in Diagnosing Kidney Disease, JASN 202). The CKD-EPI equation should not be used for patients with unstable renal function and has not been validated in children and those over 70. Current interpretive data was last reviewed 2021. Blood 06/18/2025 8:46 PM VACUUM EVAPORATION OPERATOR 06/18/2025 8:50 PM VACUUM EVAPORATION OPERATOR us Selina Villalobos MD LAB BLOOD ORDERABLES Fin al Result Performing Organization Address City/[facility]/ZIP Co de Phone Number [facility] [address] [place] [address] * (ABNORMAL) Differential, auto (06/18/2025 8:46 PM VACUUM EVAPORATION OPERATOR) Neutrophil abs 7.19(H) 1.50 - 6.50 K/cumm Imm gran abs 0.04 0.00 - 0.10 K/cumm [facility] Lymphocyte abs 2.30 0.80 - 3.30 K/cumm [facility] Monocyte abs 0.77 0.20 - 0.80 K/cumm [facility] Eosinophil abs 0.70(H) 0.00 - 0.50 K/cumm [facility] Basophil abs 0.12(H) 0.00 - 0.10 K/cumm [facility] Neutrophil pct 64.6 % [facility] Comment: Interpretive Data Percent cell count reference ranges are not reported, since discordance with absolute values may lead to misinterpretation of CBC data. Current Interpretive Data was last revised on 2017. Imm gran pct 0.4 % [facility] Comment: Interpretive Data Percent cell count reference ranges are not reported, since discordance with absolute values may lead to misinterpretation of CBC data. Current Interpretive Data was last revised on 2017. Lymphocyte pct 20.7 % [facility] Comment: Interpretive Data Percent cell count reference ranges are not reported, since discordance with absolute values may lead to misinterpretation of CBC data. Current Interpretive Data was last revised on 2017. Monocyte pct 6.9 % [facility] Comment: Interpretive Data Percent cell count reference ranges are not reported, since discordance with absolute values may lead to misinterpretation of CBC data. Current Interpretive Data was last revised on 2017. Eosinophil pct 6.3 % [facility] Comment: Interpretive Data Percent cell count reference ranges are not reported, since discordance with absolute values may lead to misinterpretation of CBC data. Current Interpretive Data was last revised on 2017. Basophil pct 1.1 % [facility] Comment: Interpretive Data Percent cell count reference ranges are not reported, since discordance with absolute values may lead to misinterpretation of CBC data. Current Interpretive Data was last revised on 2017. Blood 06/18/2025 8:46 PM VACUUM EVAPORATION OPERATOR 06/18/2025 8:50 PM VACUUM EVAPORATION OPERATOR us Selina Villalobos MD LAB BLOOD ORDERABLES Fin al Result [facility] [address] Department [place] [address] * Respiratory pathogen panel Nasopharyngeal (06/18/2025 8:46 PM VACUUM EVAPORATION OPERATOR) Influenza A RNA Not Detected Not Detected [facility] Influenza B RNA Not Detected Not Detected [facility] RSV RNA Not Detected Not Detected [facility] COVID-19 RNA Not Detected Not Detected [facility] Coronavirus 229E RNA Not Detected Not Detected [facility] Coronavirus HKU1 RNA Not Detected Not Detected [facility] Coronavirus NL63 RNA Not Detected Not Detected [facility] Coronavirus OC43 RNA Not Detected Not Detected [facility] Adenovirus DNA Not Detected Not Detected [facility] Metapneumovirus RNA Not Detected Not Detected [facility] Rhinovirus/Enterov irus RNA Not Detected Not Detected [facility] Parainfluenza 1 RNA Not Detected Not Detected [facility] Parainfluenza 2 RNA Not Detected Not Detected [facility] Parainfluenza 3 RNA Not Detected Not Detected [facility] Parainfluenza 4 RNA Not Detected Not Detected [facility] B. pertussis DNA Not Detected Not Detected [facility] B. parapertussis DNA Not Detected Not Detected [facility] C. pneumoniae DNA Not Detected Not Detected [facility] M. pneumoniae DNA Not Detected Not Detected [facility] Comment: Interpretive Data The [employer] FilmArray Respiratory Panel (RP2.1) assay is a multiplexed real-time PCR based nucleic acid test capable of simultaneous qualitative detection and identification of multiple respiratory viral and bacterial nucleic acids, including SARS Coronavirus 2 (the causative agent of COVID-19). The following bacteria, viruses and virus subtypes can be identified using the FilmArray RP2.1 assay: Bordetella pertussis, Bordetella parapertussis, Chlamydia pneumoniae, Mycoplasma pneumoniae, Adenovirus, SARS Coronavirus 2, seasonal coronaviruses (Coronavirus HKU1, Coronavirus NL63, Coronavirus 229E, and Coronavirus OC43), Influenza A, Influenza A subtype H1, Influenza A subtype H3, Influenza A subtype 2009 H1, Influenza B, Metapneumovirus, Parainfluenza 1, Parainfluenza 2, Parainfluenza 3, Parainfluenza 4, RSV, Rhinovirus/Enterovirus. Due to the genetic similarity between human Rhinovirus and Enterovirus, the FilmArray RP2.1 assay cannot reliably differentiate them. Coronavirus OC43 may cross-react with some isolates of Coronavirus HKU1. A dual positive result may be due to cross-reactivity or may indicate a co- infection. The detection and identification of specific viral and bacterial nucleic acids from individuals exhibiting signs and symptoms of a respiratory infection aids in the diagnosis of respiratory infection if used in conjunction with other clinical and epidemiological information. The results of this test should not be used as the sole basis for diagnosis, treatment, or other management decisions. Negative results in the setting of a respiratory illness may be due to infection with pathogens that are not detected by this test. Positive results do not rule out infection/co-infection with other organisms. The agent(s) detected by the FilmArray RP2.1 may not be the definite cause of disease. Additional testing (lab, imaging, etc.) may be necessary when evaluating a patient with possible respiratory tract infection. The FilmArray RP2.1 assay has FDA clearance for testing of [employer] swabs. The performance characteristics of this assay have been determined by [facility]. Current interpretive data was last revised on 2021. Nasopharyngeal 06/18/2025 8: 46 PM VACUUM EVAPORATION OPERATOR 06/18/2025 8:56 PM VACUUM EVAPORATION OPERATOR Narrative [facility] - 06/18/2025 9:55 PM VACUUM EVAPORATION OPERATOR Is the Patient experiencing symptoms consistent with COVID?->Yes Surveillance testing for transplant patient?->No us Benja Masters MD LAB MICROBIOLOGY - GENERAL ORDERABLES Final Result [facility] [address] Department [place] [address] [facility] * (ABNORMAL) CBC with auto differential (06/18/2025 8:46 PM VACUUM EVAPORATION OPERATOR) [facility] Signature WBC 11.12(H) 3.80 - 9.90 K/cumm Hgb 15.5 11.9 - 15.5 g/dL [facility] Hct 47.1(H) 35.6 - 45.5 % [facility] Plt 270 150 - 400 K/cumm [facility] MPV 9.4 9.1 - 12.3 fL [facility] RBC 5.36(H) 3.90 - 5.20 M/cumm [facility] MCV 87.9 81.3 - 96.4 fL [facility] MCH 28.9 27.1 - 33.3 pg [facility] MCHC 32.9 32.3 - 35.7 g/dL [facility] RDW CV 13.2 11.1 - 14.9 % [facility] RDW SD 42.9 35.7 - 48.1 fL [facility] NRBC abs 0.00 0.00 - 0.01 K/cumm [facility] Blood 06/18/2025 8:46 PM VACUUM EVAPORATION OPERATOR 06/18/2025 8:50 PM VACUUM EVAPORATION OPERATOR us Benja Masters MD LAB BLOOD ORDERABLES Final Result [facility] [address] Department [place] [address] * Comprehensive metabolic panel (06/18/2025 8:46 PM VACUUM EVAPORATION OPERATOR) Sodium 139 135 - 145 mmol/L Potassium, pl 3.7 3.3 - 4.9 mmol/L [facility] Chloride 106 97 - 110 mmol/L [facility] CO2 22 22 - 32 mmol/L [facility] Anion gap 11 2 - 15 mmol/L [facility] BUN 18 6 - 25 mg/dL [facility] Creatinine 0.70 0.60 - 1.10 mg/dL [facility] Glucose 109 70 - 199 mg/dL [facility] Comment: Interpretive Data Fasting glucose >/= 126 mg/dl is diagnostic for diabetes. Fasting is defined as no caloric intake for at least 8 hours. Fasting glucose between 100 mg/dl to 125 mg/dl is diagnostic of prediabetes. In a patient with classic symptoms of hyperglycemia or hyperglycemic crisis, a random glucose >/= 200 mg/dl is diagnostic for diabetes. In the absence of unequivocal hyperglycemia, results should be confirmed by repeat testing. The classification and Diagnosis of Diabetes Diabetes Care 2021; 46: S19-S40. Current interpretive data was last revised 2022. Calcium 9.4 8.5 - 10.3 mg/dL [facility] Bilirubin, total 0.5 0.1 - 1.2 mg/dL [facility] Protein, pl 7.1 6.5 - 8.5 g/dL [facility] Albumin 4.2 3.5 - 5.0 g/dL [facility] Alk phos 83 40 - 130 Units/L [facility] ALT 32 7 - 45 Units/L [facility] AST 25 10 - 45 Units/L [facility] Comment:Slightly Hemolyzed S pecimen Blood 06/18/2025 8:46 PM VACUUM EVAPORATION OPERATOR 06/18/2025 8:50 PM VACUUM EVAPORATION OPERATOR us Benja Masters MD LAB BLOOD ORDERABLES Final Result Performing Organization Address [facility] Co de Phone Number [facility] [address] [place] [address] * ECG 12 lead (06/18/2025 8:42 PM VACUUM EVAPORATION OPERATOR) 06/18/2025 8:42 PM VACUUM EVAPORATION OPERATOR Narrative [facility] - 06/19/2025 6:00 PM VACUUM EVAPORATION OPERATOR Vent Rate: 95 bpm RR Interval: 629 msec TN Interval: 149 msec QRS Duration: 90 msec QT Interval: 377 msec QTC Interval: 430 msec P-R-T [place]: 51 - 19 - 52 degrees IMPRESSION: SINUS RHYTHM SEPTAL MYOCARDIAL INFARCTION , PROBABLY OLD ABNORMAL ECG Electronically Signed By: Katty Willard [facility] Card Benja Masters MD ECG ORDERABLES Final Resu lt Performing Organization Address City/[facility]/ZIP Co de Phone Number [facility] [employer] [facility] * (ABNORMAL) Respiratory pathogen panel Nasopharyngeal (05/21/2025 12:44 AM VACUUM EVAPORATION OPERATOR) Pathologist [facility] Influenza A RNA Not Detected Not Detected [facility] Influenza B RNA Not Detected Not Detected [facility] RSV RNA Not Detected Not Detected [facility] COVID-19 RNA Not Detected Not Detected [facility] Coronavirus 229E RNA Not Detected Not Detected [facility] Coronavirus HKU1 RNA Not Detected Not Detected [facility] Coronavirus NL63 RNA Not Detected Not Detected [facility] Coronavirus OC43 RNA Not Detected Not Detected [facility] Adenovirus DNA Not Detected Not Detected [facility] Metapneumovirus RNA Not Detected Not Detected [facility] Rhinovirus/Enterov irus RNA Detected(A) Not Detected [facility] Parainfluenza 1 RNA Not Detected Not Detected [facility] Parainfluenza 2 RNA Not Detected Not Detected [facility] Parainfluenza 3 RNA Not Detected Not Detected [facility] Parainfluenza 4 RNA Not Detected Not Detected [facility] B. pertussis DNA Not Detected Not Detected [facility] B. parapertussis DNA Not Detected Not Detected [facility] C. pneumoniae DNA Not Detected Not Detected [facility] M. pneumoniae DNA Not Detected Not Detected [facility] Comment: Interpretive Data The [employer] FilmArray Respiratory Panel (RP2.1) assay is a multiplexed real-time PCR based nucleic acid test capable of simultaneous qualitative detection and identification of multiple respiratory viral and bacterial nucleic acids, including SARS Coronavirus 2 (the causative agent of COVID-19). The following bacteria, viruses and virus subtypes can be identified using the FilmArray RP2.1 assay: Bordetella pertussis, Bordetella parapertussis, Chlamydia pneumoniae, Mycoplasma pneumoniae, Adenovirus, SARS Coronavirus 2, seasonal coronaviruses (Coronavirus HKU1, Coronavirus NL63, Coronavirus 229E, and Coronavirus OC43), Influenza A, Influenza A subtype H1, Influenza A subtype H3, Influenza A subtype 2009 H1, Influenza B, Metapneumovirus, Parainfluenza 1, Parainfluenza 2, Parainfluenza 3, Parainfluenza 4, RSV, Rhinovirus/Enterovirus. Due to the genetic similarity between human Rhinovirus and Enterovirus, the FilmArray RP2.1 assay cannot reliably differentiate them. Coronavirus OC43 may cross-react with some isolates of Coronavirus HKU1. A dual positive result may be due to cross-reactivity or may indicate a co- infection. The detection and identification of specific viral and bacterial nucleic acids from individuals exhibiting signs and symptoms of a respiratory infection aids in the diagnosis of respiratory infection if used in conjunction with other clinical and epidemiological information. The results of this test should not be used as the sole basis for diagnosis, treatment, or other management decisions. Negative results in the setting of a respiratory illness may be due to infection with pathogens that are not detected by this test. Positive results do not rule out infection/co-infection with other organisms. The agent(s) detected by the FilmArray RP2.1 may not be the definite cause of disease. Additional testing (lab, imaging, etc.) may be necessary when evaluating a patient with possible respiratory tract infection. The FilmArray RP2.1 assay has FDA clearance for testing of VP INTEGRATION swabs. The performance characteristics of this assay have been determined by [facility]. Current interpretive data was last revised on 2021. Nasopharyngeal 05/21/2025 12 :44 AM VACUUM EVAPORATION OPERATOR 05/21/2025 12:59 AM VACUUM EVAPORATION OPERATOR Narrative [facility] - 05/21/2025 1:49 AM VACUUM EVAPORATION OPERATOR Is the Patient experiencing symptoms consistent with COVID?->Unknown Surveillance testing for transplant patient?->No Olu Maya MD LAB MICROBIOLOGY - GEN ERAL ORDERABLES Final Result [facility] [address] [place] [address] [facility] * CT Abdomen Pelvis W Contrast (05/21/2025 12:39 AM VACUUM EVAPORATION OPERATOR) Anatomical Region Laterality Modality Body N/A Computed Tomogra phy 05/21/2025 12:3 2 AM VACUUM EVAPORATION OPERATOR Impressions 05/21/2025 7:35 AM VACUUM EVAPORATION OPERATOR Ill-defined hypodense areas in the right renal cortex likely representing areas of infection/pyelonephritis. Renal infarcts possible as well. Clinical correlation and follow-up recommended.. Electronically signed by: Sivakumar Neville M.D. Narrative 05/21/2025 7:[address] EV[address]ORATION OPER[address] CT abdomen and pelvis with contrast HISTORY: Right flank pain. TECHNIQUE: CT abdomen and pelvis was done with contrast 72mL Optiray 350 intravenously. FINDINGS: There are no prior studies for correlation. Breast implants are partially visualized. There is some mild atelectasis at the lung bases. There is likely a tiny hiatal hernia.. There is no acute fracture or acute bone destruction. The size of the spleen is normal. A couple a 2 mm stones are present in the left kidney. The left ureter is normal in caliber and contains no definite stone. Intrauterine device present in the uterus.. The left adrenal gland appears normal. There are several hypodense areas in the right kidney extending to the periphery with areas of diminished enhancement. There is no hydronephrosis.. The right adrenal gland appears normal. There is no evidence of pancreatitis or significant pancreatic mass. The liver appears normal. There is no inflammation around the gallbladder. There is no evidence of appendicitis. There is no evidence of abdominal aortic aneurysm. There is no abnormal adenopathy seen. There is no significant ascites. There is no evidence of bowel obstruction. There is no significant abnormal bowel wall thickening. The urinary bladder is decompressed. Likely a small cyst of the left ovary less than 2 cm. Procedure Note Sivakumar Neville MD - 05/21/2025 CT abdomen and pelvis with contrast HISTORY: Right flank pain. TECHNIQUE: CT abdomen and pelvis was done with contrast 72mL Optiray 350 intravenously. FINDINGS: There are no prior studies for correlation. Breast implants are partially visualized. There is some mild atelectasis at the lung bases. There is likely a tiny hiatal hernia.. There is no acute fracture or acute bone destruction. The size of the spleen is normal. A couple a 2 mm stones are present in the left kidney. The left ureter is normal in caliber and contains no definite stone. Intrauterine device present in the uterus.. The left adrenal gland appears normal. There are several hypodense areas in the right kidney extending to the periphery with areas of diminished enhancement. There is no hydronephrosis.. The right adrenal gland appears normal. There is no evidence of pancreatitis or significant pancreatic mass. The liver appears normal. There is no inflammation around the gallbladder. There is no evidence of appendicitis. There is no evidence of abdominal aortic aneurysm. There is no abnormal adenopathy seen. There is no significant ascites. There is no evidence of bowel obstruction. There is no significant abnormal bowel wall thickening. The urinary bladder is decompressed. Likely a small cyst of the left ovary less than 2 cm. IMPRESSION: Ill-defined hypodense areas in the right renal cortex likely representing areas of infection/pyelonephritis. Renal infarcts possible as well. Clinical correlation and follow-up recommended.. Electronically signed by: Sivakumar Neville M.D. Olu Maya MD IMG CT PROCEDURES Carly l Result * POCT hCG, urine (05/20/2025 9:02 PM VACUUM EVAPORATION OPERATOR) HCG, ur, POC Negative Negative Lot Number [id number] QC Backgroud Clear Acceptable QC Control Line Acceptable Urine 05/20/2025 9:02 PM VACUUM EVAPORATION OPERATOR Olu Maya MD POINT OF CARE TEST ORD ERABLES Final Result * (ABNORMAL) Urinalysis reflex to microscopic and culture Urine (05/20/2025 8:56 PM VACUUM EVAPORATION OPERATOR) Pathologist [facility] Color, ur Yellow Yellow Clarity, ur Clear Clear [facility] Specific gravity, ur 1.027 1.003 - 1.030 [facility] pH, urine 7.0 [facility] Comment: Interpretive Data U rine pH is affected by diet, medications, systemic acid-base disturbances, and renal tubular function. pH may affect urinary stone formation. For example, urine pH below 6.0 may help reduce the tendency for calcium phosphate stones and pH greater than 6.0 may reduce the tendency for uric acid stone formation. Source: [facility] [employer] Current Interpretive Data was last revised on 2017 Protein, ur ql 1+(A) Negative [facility] Glucose, ur ql Negative Negative [facility] Ketones, ur Negative Negative [facility] Bilirubin, ur Negative Negative [facility] Blood, ur Negative Negative [facility] Urobilinogen, ur <2.0 <2.0 mg/dL [facility] Nitrite, ur Negative Negative [facility] Leukocyte esterase, ur 1+(A) Negative [facility] UA reflex comment Reflex to microscopic UA will be performed. [facility] Urine 05/20/2025 8:56 PM VACUUM EVAPORATION OPERATOR 05/20/2025 8:56 PM VACUUM EVAPORATION OPERATOR Olu Maya MD LAB MICROBIOLOGY - GEN ERAL ORDERABLES Final Result Performing Organization Address [facility]/ZIP Co de Phone Number [facility] [address] [place] [address] * (ABNORMAL) Urinalysis, microscopic only (05/20/2025 8:56 PM VACUUM EVAPORATION OPERATOR) WBC, ur 0-5 0 - 5 /HPF RBC, ur 0-2 0 - 2 /HPF [facility] Epithelial cells, squamous, ur 6-10(A) 0 - 5 /HPF [facility] Comment:Suggestive of contam ination. Consider recollection by clean catch. Bacteria, ur Trace(A) [facility] Mucous, ur Present(A) [facility] Culture Reflex Comment Reflex conditions for urine culture (WBC >10) not met. [facility] Urine 05/20/2025 8:56 PM VACUUM EVAPORATION OPERATOR 05/20/2025 9:05 PM VACUUM EVAPORATION OPERATOR Olu Maya MD LAB URINE ORDERABLES F inal Result Performing Organization Address [facility]/ZIP Co de Phone Number [facility] [address] Department [place] [employer] [address] * eGFR (05/20/2025 8:43 PM VACUUM EVAPORATION OPERATOR) eGFR >90 >=60 mL/min/1. 73 m2 Comment: Interpretive Data Reference Interval Normal >/= 90 mL/min/1.73m2 Mildly decreased* 60 - 89 mL/min/1.73m2 Mildly to moderately decreased 45 - 59 mL/min/1.73m2 Moderately to severely decreased 30 - 44 mL/min/1.73m2 Severely decreased 15 - 29 mL/min/1.73m2 Kidney Failure < 15 mL/min/1.73m2 *Relative to young adult level Estimated glomerular filtration rate is determined by the 2020 CKD-EPI equation recommended by the National Kidney Foundation (A Unifying Approach to GFR Estimation: Recommendations of the NKF-ASK Task Force on Reassessing the Inclusion of Race in Diagnosing Kidney Disease, JASN 2020). The CKD-EPI equation should not be used for patients with unstable renal function and has not been validated in children and those over 70. Current interpretive data was last reviewed 2021. Blood 05/20/2025 8:43 PM VACUUM EVAPORATION OPERATOR 05/20/2025 8:48 PM VACUUM EVAPORATION OPERATOR us Olu Maya MD LAB BLOOD ORDERABLES F inal Result [facility] [address] Department [place] [address] * (ABNORMAL) Differential, auto (05/20/2025 8:43 PM VACUUM EVAPORATION OPERATOR) Neutrophil abs 9.95(H) 1.50 - 6.50 K/cumm Imm gran abs 0.11(H) 0.00 - 0.10 K/cumm [facility] Lymphocyte abs 3.03 0.80 - 3.30 K/cumm [facility] Monocyte abs 0.81(H) 0.20 - 0.80 K/cumm [facility] Eosinophil abs 0.01 0.00 - 0.50 K/cumm [facility] Basophil abs 0.07 0.00 - 0.10 K/cumm [facility] Neutrophil pct 71.1 % [facility] Comment: Interpretive Data Percent cell count reference ranges are not reported, since discordance with absolute values may lead to misinterpretation of CBC data. Current Interpretive Data was last revised on 2017. Imm gran pct 0.8 % [facility] Comment: Interpretive Data Percent cell count reference ranges are not reported, since discordance with absolute values may lead to misinterpretation of CBC data. Current Interpretive Data was last revised on 2017. Lymphocyte pct 21.7 % [facility] Comment: Interpretive Data Percent cell count reference ranges are not reported, since discordance with absolute values may lead to misinterpretation of CBC data. Current Interpretive Data was last revised on 2017. Monocyte pct 5.8 % [facility] Comment: Interpretive Data Percent cell count reference ranges are not reported, since discordance with absolute values may lead to misinterpretation of CBC data. Current Interpretive Data was last revised on 2017. Eosinophil pct 0.1 % [facility] Comment: Interpretive Data Percent cell count reference ranges are not reported, since discordance with absolute values may lead to misinterpretation of CBC data. Current Interpretive Data was last revised on 2017. Basophil pct 0.5 % [facility] Comment: Interpretive Data Percent cell count reference ranges are not reported, since discordance with absolute values may lead to misinterpretation of CBC data. Current Interpretive Data was last revised on 2017. Blood 05/20/2025 8:43 PM VACUUM EVAPORATION OPERATOR 05/20/2025 8:48 PM VACUUM EVAPORATION OPERATOR us Olu Maya MD LAB BLOOD ORDERABLES F inal Result [facility] [address] Department [place] [address] * (ABNORMAL) CBC with auto differential (05/20/2025 8:43 PM VACUUM EVAPORATION OPERATOR) WBC 13.98(H) 3.80 - 9.90 K/cumm Hgb 17.0(H) 11.9 - 15.5 g/dL [facility] Hct 49.9(H) 35.6 - 45.5 % [facility] Plt 310 150 - 400 K/cumm [facility] MPV 9.3 9.1 - 12.3 fL [facility] RBC 5.71(H) 3.90 - 5.20 M/cumm [facility] MCV 87.4 81.3 - 96.4 fL [facility] MCH 29.8 27.1 - 33.3 pg [facility] MCHC 34.1 32.3 - 35.7 g/dL [facility] RDW CV 13.4 11.1 - 14.9 % [facility] RDW SD 42.6 35.7 - 48.1 fL [facility] NRBC abs 0.00 0.00 - 0.01 K/cumm [facility] Blood Venous blood specimen / Unknown 05/20/2025 8:43 PM VACUUM EVAPORATION OPERATOR 05/20/2025 8:48 PM VACUUM EVAPORATION OPERATOR Olu Maya MD LAB BLOOD ORDERABLES F inal Result Performing Organization Address City/[facility]/ZIP Co de Phone Number [facility] [address] tripJane [place], [place] [id number] * Lipase (05/20/2025 8:43 PM VACUUM EVAPORATION OPERATOR) [facility] Lipase 25 10 - 99 Units/L Blood Venous blood specimen / Unknown 05/20/2025 8:43 PM VACUUM EVAPORATION OPERATOR 05/20/2025 8:48 PM VACUUM EVAPORATION OPERATOR Olu Maya MD LAB BLOOD ORDERABLES F inal Result Performing Organization Address [facility]/ZIP Co de Phone Number [facility] [address] [place] [address] * Comprehensive metabolic panel (05/20/2025 8:43 PM VACUUM EVAPORATION OPERATOR) [facility] Sodium 142 135 - 145 mmol/L Potassium, pl 3.7 3.3 - 4.9 mmol/L [facility] Chloride 103 97 - 110 mmol/L [facility] CO2 25 22 - 32 mmol/L [facility] Anion gap 14 2 - 15 mmol/L [facility] BUN 18 6 - 25 mg/dL [facility] Creatinine 0.75 0.60 - 1.10 mg/dL [facility] Glucose 101 70 - 199 mg/dL [facility] Comment: Interpretive Data Fasting glucose >/= 126 mg/dl is diagnostic for diabetes. Fasting is defined as no caloric intake for at least 8 hours. Fasting glucose between 100 mg/dl to 125 mg/dl is diagnostic of prediabetes. In a patient with classic symptoms of hyperglycemia or hyperglycemic crisis, a random glucose >/= 200 mg/dl is diagnostic for diabetes. In the absence of unequivocal hyperglycemia, results should be confirmed by repeat testing. The classification and Diagnosis of Diabetes Diabetes Care 2021; 46: S19-S40. Current interpretive data was last revised 2022. Calcium 9.5 8.5 - 10.3 mg/dL [facility] Bilirubin, total 0.3 0.1 - 1.2 mg/dL [facility] Protein, pl 7.4 6.5 - 8.5 g/dL [facility] Albumin 4.3 3.5 - 5.0 g/dL [facility] Alk phos 73 40 - 130 Units/L [facility] ALT 37 7 - 45 Units/L [facility] AST 29 10 - 45 Units/L [facility] Comment:Slightly Hemolyzed S pecimen Blood Venous blood specimen / Unknown 05/20/2025 8:43 PM VACUUM EVAPORATION OPERATOR 05/20/2025 8:48 PM VACUUM EVAPORATION OPERATOR Olu Maya MD LAB BLOOD ORDERABLES F inal Result [facility] [address] [place] [address] * ECG 12 lead (05/20/2025 8:24 PM VACUUM EVAPORATION OPERATOR) 05/20/2025 8:24 PM VACUUM EVAPORATION OPERATOR Narrative [facility] - 05/21/2025 10:00 AM VACUUM EVAPORATION OPERATOR Vent Rate: 94 bpm RR Interval: 633 msec TN Interval: 132 msec QRS Duration: 101 msec QT Interval: 380 msec QTC Interval: 440 msec P-R-T [place]: 74 - 46 - 76 degrees IMPRESSION: SINUS RHYTHM NORMAL ECG Electronically Signed By: Benja Motley MD [facility] Olu Maya MD ECG ORDERABLES Final Result [facility] from Last 3 Months Insurance [id number] [place] [facility] CHOICE PLUS [place] CHOICE OOS [facility] CHOICE PLUS [address] CHOICE OOS Advance Directives For more information, please contact: [phone] * Full Code (Latest Code Status on File) Date Activated Date Inactivated Comments 09/10/2024 6:27 AM 09/13/2024 4:40 PM Care Teams Shuttle Spotter Relationship Specialty Start Date End Date Sylvain Mancia MD PCP - General Family Medicine 02/11/20
--- OUTSIDE RECORDS SUMMARY | 2025-07-07 08:59 | XMS_ITS | Patient Health Record ---
Author Organization [facility] Address [address] [place] [address] Care Team Providers Care Entry Writer Name Role Phone Jamal Carranza Unavailable [phone] Reason For Referral No Information Medications Medication SIG (Take, Route, Frequency, Duration) Notes Start Date End Date Status Symbicort 80-4.5 MCG/ACT Aerosol Inhalation 04/01/2022 Active predniSONE 10 MG Tablet Oral 04/01/2022 Active Amoxicillin-Pot Clavulanate 875-125 MG Tablet Oral 04/01/2022 Active ProAir HFA 108 (90 Base) MCG/ACT Aerosol Solution Inhalation 04/01/2022 Act sapphire Cyclobenzaprine HCl 10 MG Tablet Oral 04/01/2022 Active Montelukast Sodium 10 MG Tablet Oral 04/01/2022 Active Cefdinir 300 MG Capsule Oral 04/01/2022 Active DULoxetine HCl 30 MG Capsule Delayed Release Particles Oral 04/01/2022 Ac tive Albuterol Sulfate (2.5 MG/3ML) 0.083% Nebulization Solution Inhalation 04/01/2022 Active Breo Ellipta 100-25 MCG/INH Aerosol Powder Breath Activated Inhalation 04/01/2022 Active ALPRAZolam 0.25 MG Tablet Oral 04/01/2022 Active guaiFENesin-Codeine 100-10 MG/5ML Solution Oral 04/01/2022 Active lamoTRIgine 25 MG Tablet Oral 04/01/2022 Active DULoxetine HCl 60 MG Capsule Delayed Release Particles Oral 04/01/2022 Ac tive Immunizations Vaccine Route Administration Date Status [facility] Covid-19 Vaccine Unknown 10/19/2020 Linsey lomax Social History Social History Additional Details Category Social Info Options Details Migrated Social History Migrated Social History Alcohol Intake: Occasional 10/25/2021,Tobacco Years: Former smoker 10/25/2021 Plan Of Treatment No Information Insurance Providers Payer Name Payer Address Payer Phone Subscriber Number Group Number Insured Name Patient Relationship to Insured Coverage Start Date Coverage End Date [facility] [address] [place] [address] [id number] EMRE SHANKAR Self - patient is the insured [facility] [address] [place] [address] [id number] KATTY SHANKAR Spouse - patient is the spouse of the insured Medical (General) History Surgical History Surgery Date(Month/Year) Other Tonsilectomy/adenoids 07/17/1984
[2025-07-07 09:14] LABS: Alanine Aminotransferase 55 U/L (6-35); Albumin Level 4.4 g/dL (3.5-5.1); Alkaline Phosphatase 76 U/L (38-126); Anion Gap 8 mmol/L (4-12); Aspartate Amino Transferase 51 U/L (14-36); Bilirubin,Total 1.2 mg/dL (0.2-1.3); Blood Urea Nitrogen 12 mg/dL (7-17); Calcium 8.9 mg/dL (8.4-10.2); Carbon Dioxide 25 mmol/L (22-30); Chloride 105 mmol/L (98-107); Cholesterol 219 mg/dL (0-200); Estimated Glomerular Filt Rate > 60; Glucose 93 mg/dL (65-110); HDL Direct 45 mg/dL; Potassium 3.6 mmol/L (3.4-5.0); Sodium 138 mmol/L (137-145); Total Protein 7.4 g/dL (6.3-8.2); Triglycerides 110 mg/dL (<150)
[2025-07-07 09:20] LABS: Free T4 Free Thyroxine 0.83 ng/dL (0.78-2.19)
[2025-07-07 09:50] LABS: Thyroid Stimulating Hormone 3.560 uIU/mL (0.465-4.680)
== END 2025-07-07 08:34 | disposition home or self-care (01) ==
LOC: ANHLAB 08:35
PROVIDERS: PCP Family Medicine; Visit Provider Nurse Practitioner Adult Health
DX: R63.5 Abnormal weight gain (principal); E87.6 Hypokalemia; J45.20 Mild intermittent asthma, uncomplicated
CPT/HCPCS: 36415; 80053; 80061; 84439; 84443; 85025; 86376

== ENCOUNTER 2025-07-10 01:59 | Emergency (ER) | payer OTHER, BC, SELFPAY ==
--- NOTE | ~2025-07-10 | XR_ITS ---
XR forearm LT 2V 07/10/2025 02:28 INDICATION: Left arm pain after injury PROCEDURE: 2 views left forearm COMPARISON: No prior studies for comparison. FINDINGS: Fracture, dislocation or subluxation is not identified. The soft tissues appear within normal limits. No foreign bodies are identified. IMPRESSION: 1: NO ACUTE BONE OR JOINT ABNORMALITY IDENTIFIED. Reviewed, dictated and finalized at location O. APPLIANCE REPAIRER
--- NOTE | ~2025-07-10 | XR_ITS ---
XR hand LT 2V, XR wrist LT 2V 07/10/2025 02:28 INDICATION: Left wrist and hand pain after fall PROCEDURE: 3 views left hand and 3 views left wrist COMPARISON: No prior studies for comparison. FINDINGS: Fracture, dislocation or subluxation is not identified. There is 3 screws transfixing the fourth middle phalanx. The soft tissues appear within normal limits. No foreign bodies are identified. 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 IMPRESSION: 1: NO ACUTE BONE OR JOINT ABNORMALITY IDENTIFIED. Reviewed, dictated and finalized at location O. NSMAN IMPRESSION: 1: NO ACUTE BONE OR JOINT ABNORMALITY IDENTIFIED.
[2025-07-10 02:00] VITALS: BP 142/91; PULSE 97; RESP 18; TEMP 36.4; O2SAT 96
--- NOTE | 2025-07-10 02:05 | PC.NURSE ---
Ice pack provided out in triage.
--- NOTE | 2025-07-10 02:46 | PC.NURSE ---
Pt and mother ambulate to intake desk and state they are just going to leave due to wait time. Pt was not in respiratory distress. pt and mother ambulate with steady gait. pt and mother advise to come back in if anything worsens. pt and mother left without being seen by provider.
--- NOTE | 2025-07-10 05:45 | PC.NURSE ---
Pt ambulatory to intake desk and states do you have my results, I have been waiting for 5 hours, my pain is worsening. I can just go to another hospital. broodmare barn groom informed pt that she will get her results once placed in room by doctor. RN apologized for wait time but explained we are doing the best we can to get pts back at this time. this Rn called another rn to get a room cleaned for this pt to go back. Pt was informed of this information and walked away. pt walked back to intake desk dropped off her warm blanket and walked out of ED exit with steady gait. Pt left without being seen by provider.
--- OUTSIDE RECORDS SUMMARY | 2025-07-10 05:58 | XMS_ITS | Clinical Summary ---
Author Organization [facility] [employer] Address [address] [place] [address] Care Team Providers Care Yard Switch Operator Name Role Phone Sylvain Mancia MD Primary Care Provider + [phone] Allergies Active Allergy Reactions Criticality Noted Date [...] Department Care Team Description 06/18/2025 8:44 PM FOOD SERVICE DRIVER - 06/19/2025 12:11 AM [facility] Emergency [facility] Emergency Department [facility] [place] [id number] Benja Masters MD Pneumonia of right lower lobe due to infectious organism (Primary Dx); Moderate asthma with acute exacerbation, unspecified whether persistent Discharge Disposition: Discharge to home or self care 05/20/2025 10:47 PM FOOD SERVICE DRIVER - 05/21/2025 1:53 AM [facility] Emergency [facility] Emergency Department [address] [place] [phone] Olu Maya MD Acute pyelonephritis (Primary Dx) Discharge Disposition: Discharge to home or self care from Last 3 Months Surgical History Surgery Date Site/Laterality Comments HAND SURGERY Hand Surgery - screws in ring finger left hand [address] [facility] (Added by [facility] Conv) MOHS SURGERY Mohs Micrographic Surgery Nose - 2013 @ [facility] (Added by [facility]) KNEE SURGERY Knee Surgery - 2012 right knee had meniscus tear (Added by TW Conv) ID LITHOTRIPSY XTRCORP SHOCK WAVE Renal Lithotripsy - 2012 & 2008 (Added by TW Conv) ID TONSILLECTOMY & ADENOIDEC SALOME <AGE 12 Tonsillectomy [...] Tobacco: Unknown Tobacco Cessation:Counseling Given: Not Answered [facility] Utilities Answer Date Recorded In the past [...] often do you attend chur ch or episcopalian services? Never 09/11/2024 Do you belong to any clubs o r organizations such as congregational groups, unions, fraternal or athletic groups, or [...] any time in the past 12 m [facility], were you homeless or living in a usp (including now)? No 09/11/2024 Personal Safety Answer Date Recorded Have you ever been in or are you currently in a harmful physical or emotional relationship or is someone making you feel afraid or unsafe? Denies 06/18/2025 Comments Unknown Sex and Gender Information Value Date Recorded Sex Assigned at Not on file Legal Sex Female 3:56 AM FOOD SERVICE DRIVER Gender Identity Not on file Sexual Orientation Not on file Last Filed Vital Signs Vital Sign Reading Time Taken Comments Blood Pressure 136/81 06/19/2025 12:00 AM FOOD SERVICE DRIVER Pulse 86 06/19/2025 12:00 AM FOOD SERVICE DRIVER Temperature 36.7 C (98.1 F) 06/19/2025 12:00 AM FOOD SERVICE DRIVER Respiratory Rate 20 06/19/2025 12:00 AM FOOD SERVICE DRIVER Oxygen Saturation 92% 06/19/2025 12:00 AM FOOD SERVICE DRIVER Inhaled Oxygen Concentration - - Weight 70.3 kg (155 lb) 06/18/2025 8:39 PM FOOD SERVICE DRIVER Height 162.6 cm (5' 4) 06/18/2025 8:39 PM FOOD SERVICE DRIVER Body Mass Index 26.61 06/18/2025 8:39 PM FOOD SERVICE DRIVER Plan of Treatment Health Maintenance Due Date [...] T HIGH-SENSITIVITY 2-HOUR Timed 06/18/2025 10:59 PM FOOD SERVICE DRIVER XR CHEST PA LATERAL 2 VIEWS ED 06/18/2025 9:55 PM FOOD SERVICE DRIVER EGFR STAT 06/18/2025 8:46 PM FOOD SERVICE DRIVER DIFFERENTIAL AUTO STAT 06/18/2025 8:4 6 PM FOOD SERVICE DRIVER TROPONIN T HIGH-SENSITIVITY SERIES (BASELINE, 2HR, 4HR, 6HR) STAT 06/18/2025 8:46 PM FOOD SERVICE DRIVER CBC WITH AUTO DIFFERENTIAL STAT 06/18/2025 8:46 PM FOOD SERVICE DRIVER COMPREHENSIVE METABOLIC PANEL STAT 06/18/2025 8:46 PM FOOD SERVICE DRIVER RESPIRATORY PATHOGEN PANEL STAT 06/18/2025 8:46 PM FOOD SERVICE DRIVER ECG 12-LEAD STAT 06/18/2025 8:42 PM FOOD SERVICE DRIVER RESPIRATORY PATHOGEN PANEL STAT 05/21/2025 12:44 AM FOOD SERVICE [address] CT ABDOMEN PELVIS W CONTRAST ED 05/21/2025 12:39 AM FOOD SERVICE DRIVER POCT HCG, URINE Routine 05/20/2025 9:02 PM FOOD SERVICE DRIVER URINALYSIS, MICROSCOPIC ONLY STAT 05/20/2025 8:56 PM FOOD SERVICE DRIVER URINALYSIS AND REFLEX TO MICROSCOPIC AND CULTURE STAT 05/20/2025 8:56 PM FOOD SERVICE DRIVER EGFR STAT 05/20/2025 8:43 PM FOOD SERVICE DRIVER DIFFERENTIAL AUTO STAT 05/20/2025 8:4 3 PM FOOD SERVICE DRIVER LIPASE STAT 05/20/2025 8:43 PM FOOD SERVICE DRIVER COMPREHENSIVE METABOLIC PANEL STAT 05/20/2025 8:43 PM FOOD SERVICE DRIVER CBC WITH AUTO DIFFERENTIAL STAT 05/20/2025 8:43 PM FOOD SERVICE DRIVER ECG 12-LEAD STAT 05/20/2025 8:24 PM FOOD SERVICE DRIVER from Last 3 Months Results * Troponin T high-sensitivity 2-hour (06/18/2025 10:59 PM FOOD SERVICE DRIVER) Trop T hs <6 <=14 ng/L Comment: Interpretive Data For further hscTnT resources including the diagnostic algorithm and an aid in interpretation, copy and paste this link: https://nrl.testcatalog.org/show/hsTrop Current Interpretive Data last revised 2020. Trop T hs delta 0 ng/L [facility] Trop T hs interp Insignificant [facility] Blood 06/18/2025 10:5 9 PM FOOD SERVICE DRIVER 06/18/2025 11:02 PM FOOD SERVICE DRIVER us Selina Villalobos MD LAB BLOOD ORDERABLES Fin al Result [facility] [address] Department [place] [address] * XR Chest PA Lateral 2 Views (If patient hemodynamically stable and ambulatory) (06/18/2025 9:55 PM FOOD SERVICE DRIVER) Anatomical Region Laterality Modality Body, Chest N/A Computed Radiogr aphy 06/19/2025 7:47 AM FOOD SERVICE DRIVER Impressions 06/19/2025 7:47 AM FOOD SERVICE DRIVER Clear lungs. No pleural effusion or pneumothorax. Heart size and mediastinal contours within normal limits. Electronically signed by: Daniel Suarez M.D. Narrative 06/19/2025 7:47 AM FOOD SERVICE DRIVER EXAMINATION: 2 view chest radiograph Procedure Note Daniel Suarez MD - 06/19/2025 EXAMINATION: 2 view chest radiograph IMPRESSION: Clear lungs. No pleural effusion or pneumothorax. Heart size and mediastinal contours within normal limits. Electronically signed by: Daniel Suarez M.D. us Benja Masters MD IMG XR PROCEDURES Final Re sult * Troponin T high-sensitivity series (baseline, 2hr, 4hr, 6hr) (06/18/2025 8:46 PM FOOD SERVICE DRIVER) Trop T hs 6 <=14 ng/L Comment: Interpretive Data For further hscTnT resources including the diagnostic algorithm and an aid in interpretation, copy and paste this link: https://nrl.testcatalog.org/show/hsTrop Current Interpretive Data last revised 2020. Blood 06/18/2025 8:46 PM FOOD SERVICE DRIVER 06/18/2025 8:50 PM FOOD SERVICE DRIVER us Benja Masters MD LAB BLOOD ORDERABLES Final Result Performing Organization Address City/[facility]/ZIP Co de Phone Number [facility] [address] [place] [address] * eGFR (06/18/2025 8:46 PM FOOD SERVICE DRIVER) eGFR >90 >=60 mL/min/1. 73 m2 Comment: [...] last reviewed 2021. Blood 06/18/2025 8:46 PM FOOD SERVICE DRIVER 06/18/2025 8:50 PM FOOD SERVICE DRIVER us Selina Villalobos MD LAB BLOOD ORDERABLES Fin al Result Performing Organization Address City/[facility]/ZIP Co de Phone Number [facility] [address] [place] [address] * (ABNORMAL) Differential, auto (06/18/2025 8:46 PM FOOD SERVICE DRIVER) Neutrophil abs 7.19(H) 1.50 - 6.50 K/cumm Imm gran abs 0.04 0.00 - 0.10 K/cumm [facility] Lymphocyte abs 2.30 0.80 - 3.30 K/cumm [facility] Monocyte abs 0.77 0.20 - 0.80 K/cumm [facility] Eosinophil abs 0.70(H) 0.00 - 0.50 K/cumm [facility] Basophil abs 0.12(H) 0.00 - 0.10 K/cumm [facility] Neutrophil pct 64.6 % [facility] Comment: Interpretive Data Percent cell count reference ranges are not reported, since discordance with absolute values may lead to misinterpretation of CBC data. Current Interpretive Data was last revised on 2017. Imm gran pct 0.4 % [facility] Comment: Interpretive Data Percent cell count reference ranges are not reported, since discordance with absolute values may lead to misinterpretation of CBC data. Current Interpretive Data was last revised on 2017. Lymphocyte pct 20.7 % [facility] Comment: Interpretive Data Percent cell count reference ranges are not reported, since discordance with absolute values may lead to misinterpretation of CBC data. Current Interpretive Data was last revised on 2017. Monocyte pct 6.9 % [facility] Comment: Interpretive Data Percent cell count reference ranges are not reported, since discordance with absolute values may lead to misinterpretation of CBC data. Current Interpretive Data was last revised on 2017. Eosinophil pct 6.3 % [facility] Comment: Interpretive Data Percent cell count reference ranges are not reported, since discordance with absolute values may lead to misinterpretation of CBC data. Current Interpretive Data was last revised on 2017. Basophil pct 1.1 % [facility] Comment: Interpretive Data Percent cell count reference ranges are not reported, since discordance with absolute values may lead to misinterpretation of CBC data. Current Interpretive Data was last revised on 2017. Blood 06/18/2025 8:46 PM FOOD SERVICE DRIVER 06/18/2025 8:50 PM FOOD SERVICE DRIVER us Selina Villalobos MD LAB BLOOD ORDERABLES Fin al Result [facility] [address] Department [place] [address] * Respiratory pathogen panel Nasopharyngeal (06/18/2025 8:46 PM FOOD SERVICE DRIVER) Influenza A RNA Not Detected Not Detected [facility] Influenza B RNA Not Detected Not Detected [facility] RSV RNA Not Detected Not Detected [facility] COVID-19 RNA Not Detected Not Detected [facility] Coronavirus 229E RNA Not Detected Not Detected [facility] Coronavirus HKU1 RNA Not Detected Not Detected [facility] Coronavirus NL63 RNA Not Detected Not Detected [facility] Coronavirus OC43 RNA Not Detected Not Detected [facility] Adenovirus DNA Not Detected Not Detected [facility] Metapneumovirus RNA Not Detected Not Detected [facility] Rhinovirus/Enterov irus RNA Not Detected Not Detected [facility] Parainfluenza 1 RNA Not Detected Not Detected [facility] Parainfluenza 2 RNA Not Detected Not Detected [facility] Parainfluenza 3 RNA Not Detected Not Detected [facility] Parainfluenza 4 RNA Not Detected Not Detected [facility] B. pertussis DNA Not Detected Not Detected [facility] B. parapertussis DNA Not Detected Not Detected [facility] C. pneumoniae DNA Not Detected Not Detected [facility] M. pneumoniae DNA Not Detected Not Detected [facility] Comment: Interpretive Data The [employer] FilmArray Respiratory Panel (RP2.1) assay is a [...] assay has FDA clearance for testing of CAPACITOR REPAIRER swabs. The performance characteristics of this assay have been determined by [facility]. Current interpretive data was last revised on 2021. Nasopharyngeal 06/18/2025 8: 46 PM FOOD SERVICE DRIVER 06/18/2025 8:56 PM FOOD SERVICE DRIVER Narrative [facility] - 06/18/2025 9:55 PM FOOD SERVICE DRIVER Is the Patient experiencing symptoms consistent with COVID?->Yes Surveillance testing for transplant patient?->No us Benja Masters MD LAB MICROBIOLOGY - GENERAL ORDERABLES Final Result [facility] [address] Department [place] [address] [facility] * (ABNORMAL) CBC with auto differential (06/18/2025 8:46 PM FOOD SERVICE DRIVER) [facility] Signature WBC 11.12(H) 3.80 - 9.90 K/cumm Hgb 15.5 11.9 - 15.5 g/dL [facility] Hct 47.1(H) 35.6 - 45.5 % [facility] Plt 270 150 - 400 K/cumm [facility] MPV 9.4 9.1 - 12.3 fL [facility] RBC 5.36(H) 3.90 - 5.20 M/cumm [facility] MCV 87.9 81.3 - 96.4 fL [facility] MCH 28.9 27.1 - 33.3 pg [facility] MCHC 32.9 32.3 - 35.7 g/dL [facility] RDW CV 13.2 11.1 - 14.9 % [facility] RDW SD 42.9 35.7 - 48.1 fL [facility] NRBC abs 0.00 0.00 - 0.01 K/cumm [facility] Blood 06/18/2025 8:46 PM FOOD SERVICE DRIVER 06/18/2025 8:50 PM FOOD SERVICE DRIVER us Benja Masters MD LAB BLOOD ORDERABLES Final Result [facility] [address] Department [place] [address] * Comprehensive metabolic panel (06/18/2025 8:46 PM FOOD SERVICE DRIVER) Sodium 139 135 - 145 mmol/L Potassium, pl 3.7 3.3 - 4.9 mmol/L [facility] Chloride 106 97 - 110 mmol/L [facility] CO2 22 22 - 32 mmol/L [facility] Anion gap 11 2 - 15 mmol/L [facility] BUN 18 6 - 25 mg/dL [facility] Creatinine 0.70 0.60 - 1.10 mg/dL [facility] Glucose 109 70 - 199 mg/dL [facility] Comment: Interpretive Data Fasting glucose >/= 126 [...] 2022. Calcium 9.4 8.5 - 10.3 mg/dL [facility] Bilirubin, total 0.5 0.1 - 1.2 mg/dL [facility] Protein, pl 7.1 6.5 - 8.5 g/dL [facility] Albumin 4.2 3.5 - 5.0 g/dL [facility] Alk phos 83 40 - 130 Units/L [facility] ALT 32 7 - 45 Units/L [facility] AST 25 10 - 45 Units/L [facility] Comment:Slightly Hemolyzed S pecimen Blood 06/18/2025 8:46 PM FOOD SERVICE DRIVER 06/18/2025 8:50 PM FOOD SERVICE DRIVER us Benja Masters MD LAB BLOOD ORDERABLES Final Result Performing Organization Address [facility] Co de Phone Number [facility] [address] Department [place] [address] * ECG 12 lead (06/18/2025 8:42 PM FOOD SERVICE DRIVER) 06/18/2025 8:42 PM FOOD SERVICE DRIVER Narrative [facility] - 06/19/2025 6:00 PM FOOD SERVICE DRIVER Vent Rate: 95 bpm RR Interval: 629 msec ID Interval: 149 msec QRS Duration: 90 msec QT Interval: 377 msec QTC Interval: 430 msec P-R-T Cassel: 51 - 19 - 52 degrees IMPRESSION: SINUS RHYTHM SEPTAL MYOCARDIAL INFARCTION , PROBABLY OLD ABNORMAL ECG Electronically Signed By: Katty Willard [facility] Card Benja Masters MD ECG ORDERABLES Final Resu lt Performing Organization Address City/[facility]/ZIP Co de Phone Number [facility] [employer] [facility] * (ABNORMAL) Respiratory pathogen panel Nasopharyngeal (05/21/2025 12:44 AM FOOD SERVICE DRIVER) Pathologist [facility] Influenza A RNA Not Detected Not Detected [facility] Influenza B RNA Not Detected Not Detected [facility] RSV RNA Not Detected Not Detected [facility] COVID-19 RNA Not Detected Not Detected [facility] Coronavirus 229E RNA Not Detected Not Detected [facility] Coronavirus HKU1 RNA Not Detected Not Detected [facility] Coronavirus NL63 RNA Not Detected Not Detected [facility] Coronavirus OC43 RNA Not Detected Not Detected [facility] Adenovirus DNA Not Detected Not Detected [facility] Metapneumovirus RNA Not Detected Not Detected [facility] Rhinovirus/Enterov irus RNA Detected(A) Not Detected [facility] Parainfluenza 1 RNA Not Detected Not Detected [facility] Parainfluenza 2 RNA Not Detected Not Detected [facility] Parainfluenza 3 RNA Not Detected Not Detected [facility] Parainfluenza 4 RNA Not Detected Not Detected [facility] B. pertussis DNA Not Detected Not Detected [facility] B. parapertussis DNA Not Detected Not Detected [facility] C. pneumoniae DNA Not Detected Not Detected [facility] M. pneumoniae DNA Not Detected Not Detected [facility] Comment: Interpretive Data The [employer] FilmArray Respiratory Panel (RP2.1) assay is a [...] assay has FDA clearance for testing of CAPACITOR REPAIRER swabs. The performance characteristics of this assay have been determined by [facility]. Current interpretive data was last revised on 2021. Nasopharyngeal 05/21/2025 12 :44 AM FOOD SERVICE DRIVER 05/21/2025 12:59 AM FOOD SERVICE DRIVER Narrative [facility] - 05/21/2025 1:49 AM FOOD SERVICE DRIVER Is the Patient experiencing symptoms consistent with COVID?->Unknown Surveillance testing for transplant patient?->No Olu Maya MD LAB MICROBIOLOGY - GEN ERAL ORDERABLES Final Result [facility] [address] Department [place] [address] [facility] * CT Abdomen Pelvis W Contrast (05/21/2025 12:39 AM FOOD SERVICE DRIVER) Anatomical Region Laterality Modality Body N/A Computed Tomogra phy 05/21/2025 12:3 2 AM FOOD SERVICE DRIVER Impressions 05/21/2025 7:35 AM FOOD SERVICE DRIVER Ill-defined hypodense areas in the right renal cortex likely representing areas of infection/pyelonephritis. Renal infarcts possible as well. Clinical correlation and follow-up recommended.. Electronically signed by: Sivakumar Neville M.D. Narrative 05/21/2025 7:[address] SERV[address] CT abdomen and pelvis with contrast HISTORY: [...] * POCT hCG, urine (05/20/2025 9:02 PM FOOD SERVICE DRIVER) HCG, ur, POC Negative Negative Lot Number [id number] QC Backgroud Clear Acceptable QC Control Line Acceptable Urine 05/20/2025 9:02 PM FOOD SERVICE DRIVER Olu Maya MD POINT OF CARE TEST ORD ERABLES Final Result * (ABNORMAL) Urinalysis reflex to microscopic and culture Urine (05/20/2025 8:56 PM FOOD SERVICE DRIVER) Pathologist [facility] Color, ur Yellow Yellow Clarity, ur Clear Clear [facility] Specific gravity, ur 1.027 1.003 - 1.030 [facility] pH, urine 7.0 [facility] Comment: Interpretive Data U rine pH is affected by diet, medications, systemic acid-base disturbances, and renal tubular function. pH may affect urinary stone formation. For example, urine pH below 6.0 may help reduce the tendency for calcium phosphate stones and pH greater than 6.0 may reduce the tendency for uric acid stone formation. Source: [facility] [employer] Current Interpretive Data was last revised on 2017 Protein, ur ql 1+(A) Negative [facility] Glucose, ur ql Negative Negative [facility] Ketones, ur Negative Negative [facility] Bilirubin, ur Negative Negative [facility] Blood, ur Negative Negative [facility] Urobilinogen, ur <2.0 <2.0 mg/dL [facility] Nitrite, ur Negative Negative [facility] Leukocyte esterase, ur 1+(A) Negative [facility] UA reflex comment Reflex to microscopic UA will be performed. [facility] Urine 05/20/2025 8:56 PM FOOD SERVICE DRIVER 05/20/2025 8:56 PM FOOD SERVICE DRIVER Olu Maya MD LAB MICROBIOLOGY - GEN ERAL ORDERABLES Final Result Performing Organization Address [facility]/ZIP Co de Phone Number [facility] [address] [place] [address] * (ABNORMAL) Urinalysis, microscopic only (05/20/2025 8:56 PM FOOD SERVICE DRIVER) WBC, ur 0-5 0 - 5 /HPF RBC, ur 0-2 0 - 2 /HPF [facility] Epithelial cells, squamous, ur 6-10(A) 0 - 5 /HPF [facility] Comment:Suggestive of contam ination. Consider recollection by clean catch. Bacteria, ur Trace(A) [facility] Mucous, ur Present(A) [facility] Culture Reflex Comment Reflex conditions for urine culture (WBC >10) not met. [facility] Urine 05/20/2025 8:56 PM FOOD SERVICE DRIVER 05/20/2025 9:05 PM FOOD SERVICE DRIVER Olu Maya MD LAB URINE ORDERABLES F inal Result Performing Organization Address [facility]/ZIP Co de Phone Number [facility] [address] Department [place] [place] [address] * eGFR (05/20/2025 8:43 PM FOOD SERVICE DRIVER) eGFR >90 >=60 mL/min/1. 73 m2 Comment: [...] last reviewed 2021. Blood 05/20/2025 8:43 PM FOOD SERVICE DRIVER 05/20/2025 8:48 PM FOOD SERVICE DRIVER us Olu Maya MD LAB BLOOD ORDERABLES F inal Result [facility] [address] Department [place] [address] * (ABNORMAL) Differential, auto (05/20/2025 8:43 PM FOOD SERVICE DRIVER) Neutrophil abs 9.95(H) 1.50 - 6.50 K/cumm Imm gran abs 0.11(H) 0.00 - 0.10 K/cumm [facility] Lymphocyte abs 3.03 0.80 - 3.30 K/cumm [facility] Monocyte abs 0.81(H) 0.20 - 0.80 K/cumm [facility] Eosinophil abs 0.01 0.00 - 0.50 K/cumm [facility] Basophil abs 0.07 0.00 - 0.10 K/cumm [facility] Neutrophil pct 71.1 % [facility] Comment: Interpretive Data Percent cell count reference ranges are not reported, since discordance with absolute values may lead to misinterpretation of CBC data. Current Interpretive Data was last revised on 2017. Imm gran pct 0.8 % [facility] Comment: Interpretive Data Percent cell count reference ranges are not reported, since discordance with absolute values may lead to misinterpretation of CBC data. Current Interpretive Data was last revised on 2017. Lymphocyte pct 21.7 % [facility] Comment: Interpretive Data Percent cell count reference ranges are not reported, since discordance with absolute values may lead to misinterpretation of CBC data. Current Interpretive Data was last revised on 2017. Monocyte pct 5.8 % [facility] Comment: Interpretive Data Percent cell count reference ranges are not reported, since discordance with absolute values may lead to misinterpretation of CBC data. Current Interpretive Data was last revised on 2017. Eosinophil pct 0.1 % [facility] Comment: Interpretive Data Percent cell count reference ranges are not reported, since discordance with absolute values may lead to misinterpretation of CBC data. Current Interpretive Data was last revised on 2017. Basophil pct 0.5 % [facility] Comment: Interpretive Data Percent cell count reference ranges are not reported, since discordance with absolute values may lead to misinterpretation of CBC data. Current Interpretive Data was last revised on 2017. Blood 05/20/2025 8:43 PM FOOD SERVICE DRIVER 05/20/2025 8:48 PM FOOD SERVICE DRIVER us Olu Maya MD LAB BLOOD ORDERABLES F inal Result [facility] [address] Department [place] [address] * (ABNORMAL) CBC with auto differential (05/20/2025 8:43 PM FOOD SERVICE DRIVER) WBC 13.98(H) 3.80 - 9.90 K/cumm Hgb 17.0(H) 11.9 - 15.5 g/dL [facility] Hct 49.9(H) 35.6 - 45.5 % [facility] Plt 310 150 - 400 K/cumm [facility] MPV 9.3 9.1 - 12.3 fL [facility] RBC 5.71(H) 3.90 - 5.20 M/cumm [facility] MCV 87.4 81.3 - 96.4 fL [facility] MCH 29.8 27.1 - 33.3 pg [facility] MCHC 34.1 32.3 - 35.7 g/dL [facility] RDW CV 13.4 11.1 - 14.9 % [facility] RDW SD 42.6 35.7 - 48.1 fL [facility] NRBC abs 0.00 0.00 - 0.01 K/cumm [facility] Blood Venous blood specimen / Unknown 05/20/2025 8:43 PM FOOD SERVICE DRIVER 05/20/2025 8:48 PM FOOD SERVICE DRIVER Olu Maya MD LAB BLOOD ORDERABLES F inal Result Performing Organization Address City/[facility]/ZIP Co de Phone Number [facility] [address] [employer] [place], [place] [id number] * Lipase (05/20/2025 8:43 PM FOOD SERVICE DRIVER) [facility] Lipase 25 10 - 99 Units/L Blood Venous blood specimen / Unknown 05/20/2025 8:43 PM FOOD SERVICE DRIVER 05/20/2025 8:48 PM FOOD SERVICE DRIVER Olu Maya MD LAB BLOOD ORDERABLES F inal Result Performing Organization Address [facility]/ZIP Co de Phone Number [facility] [address] [place] [address] * Comprehensive metabolic panel (05/20/2025 8:43 PM FOOD SERVICE DRIVER) [facility] Sodium 142 135 - 145 mmol/L Potassium, pl 3.7 3.3 - 4.9 mmol/L [facility] Chloride 103 97 - 110 mmol/L [facility] CO2 25 22 - 32 mmol/L [facility] Anion gap 14 2 - 15 mmol/L [facility] BUN 18 6 - 25 mg/dL [facility] Creatinine 0.75 0.60 - 1.10 mg/dL [facility] Glucose 101 70 - 199 mg/dL [facility] Comment: Interpretive Data Fasting glucose >/= 126 [...] 2022. Calcium 9.5 8.5 - 10.3 mg/dL [facility] Bilirubin, total 0.3 0.1 - 1.2 mg/dL [facility] Protein, pl 7.4 6.5 - 8.5 g/dL [facility] Albumin 4.3 3.5 - 5.0 g/dL [facility] Alk phos 73 40 - 130 Units/L [facility] ALT 37 7 - 45 Units/L [facility] AST 29 10 - 45 Units/L [facility] Comment:Slightly Hemolyzed S pecimen Blood Venous blood specimen / Unknown 05/20/2025 8:43 PM FOOD SERVICE DRIVER 05/20/2025 8:48 PM FOOD SERVICE DRIVER Olu Maya MD LAB BLOOD ORDERABLES F inal Result [facility] [address] Department [place] [address] * ECG 12 lead (05/20/2025 8:24 PM FOOD SERVICE DRIVER) 05/20/2025 8:24 PM FOOD SERVICE DRIVER Narrative [facility] - 05/21/2025 10:00 AM FOOD SERVICE DRIVER Vent Rate: 94 bpm RR Interval: 633 msec ID Interval: 132 msec QRS Duration: 101 msec QT Interval: 380 msec QTC Interval: 440 msec P-R-T Cassel: 74 - 46 - 76 degrees IMPRESSION: SINUS RHYTHM NORMAL ECG Electronically Signed By: Benja Motley MD [facility] Olu Maya MD ECG ORDERABLES Final Result [facility] from Last 3 Months Insurance [employer] [place] [facility] CHOICE PLUS [facility] HMO/PPO Address: [address] [address] [place] [address] [employer] CHOICE OOS [facility] CHOICE PLUS [facility] H[facility]/PPO Address: [facility] [address] CHOICE OOS Advance Directives For more information, please contact: [phone] * Full Code (Latest Code Status on File) Date Activated Date Inactivated Comments 09/10/2024 6:27 AM 09/13/2024 4:40 PM Care Teams Yard Switch Operator Relationship Specialty Start Date End Date Sylvain Mancia MD PCP - General Family Medicine 02/11/20
--- OUTSIDE RECORDS SUMMARY | 2025-07-10 05:58 | XMS_ITS | Patient Health Record ---
Author Organization [facility] [employer] [facility] Address [address] [place] [address] Care Team Providers Care Fire Observer Name Role Phone Jamal Carranza Unavailable [phone] Reason For Referral No Information Medications Medication [...] Immunizations Vaccine Route Administration Date Status Comme [facility] Mayte Covid-19 Vaccine Unknown 10/19/2020 Linsey lomax Social History Social History Additional Details Category Social Info Options Details Migrated Social History Migrated Social History Alcohol Intake: Occasional 10/25/2021,Tobacco Years: Former smoker 10/25/2021 Plan Of Treatment No Information Insurance Providers Payer Name Payer Address Payer Phone Subscriber Number Group Number Insured Name Patient Relationship to Insured Coverage Start Date Coverage End Date [facility] [address] [place] [address] [id number] EMRE SHANKAR Self - patient is the insured [facility] [address] [place] [address] [id number] KATTY SHANKAR Spouse - patient is the spouse of the insured Medical (General) History Surgical History Surgery Date(Month/Year) Other Tonsilectomy/adenoids 07/17/1984
--- OUTSIDE RECORDS SUMMARY | 2025-07-10 05:58 | XMS_ITS | Clinical Summary ---
Author Organization [facility] Address [address] [place] [address] Care Team Providers Care Salesperson Yard Goods Name Role Phone Imer Mccain MD Unavailable [phone] Terence Bazan MD Unavailable Sylvain Mancia MD Primary Care Provider [phone] [facility],non-owned Affiliates and Associated Physician Practices is amultiple site organization consisting of ambulatory clinics and hospital sitesin [place], [place], [place] and [place]. This disclosure is being madepursuant to the Care Everywhere program and may not contain all information available regarding this patient. Last updated 18.[facility] Allergies Active Allergy Reactions Criticality Noted Date [...] Diagnosed Date Dysplasia of cervix, low grade (IADE 1) 5 ASCUS with positive high risk [...] on file Legal Sex Female 5:49 AM ORGAN ASSEMBLER Gender Identity Not on file Sexual Orientation Not on file Last Filed Vital Signs Vital Sign Reading Time Taken Comments Blood Pressure 152/96 08/14/2024 3:53 PM ORGAN ASSEMBLER Pulse 106 08/14/2024 3:53 PM ORGAN ASSEMBLER Temperature 36.6 C (97.9 F) 11/10/2022 7:37 AM CDT Respiratory Rate 16 11/10/2022 7:37 AM CDT Oxygen Saturation 90% 11/10/2022 7:37 AM CDT Inhaled Oxygen Concentration - - Weight 74.4 kg (164 lb) 08/14/2024 3:53 PM ORGAN ASSEMBLER Height 162.6 cm (5' 4) 08/14/2024 3:53 PM ORGAN ASSEMBLER Body Mass Index 28.15 08/14/2024 3:53 PM ORGAN ASSEMBLER Plan of Treatment Upcoming Encounters Date Type Department Care Team (Late st Contact Info) Description 08/13/2025 4:15 PM ORGAN ASSEMBLER Office Visit [facility] Medical Group - COSTUMER ASSISTANT [address] [facility] [address] [place] [address] Imer Mccain MD [address] [facility] [address] [place] [address] Health Maintenance Due Date Last Done [...] this topic Medical Devices Implanted Type Area Smart Energy Specialist Device Identifier Shelf Expiration Date Model / Serial / Lot Sys Ureth Supp Obtryx Midurethral Trnstr Implanted:Qty: 1 on 11/09/2022 by Terence Bazan MD at [facility] N/A: Urethra [employer] [facility] 08/08/2025 [id number] / / [id number] Procedures Procedure Name Priority Date/Time Associated Diagnosis Comments PAP IG LB +HPV APTIMA REFLEX 16,18/45 Routine 07/31/2024 4:39 PM ORGAN ASSEMBLER Well woman exam Screening for cervical cancer MAMMO BILAT SCREENING Routine 04/09/2021 Encounter for screening mammogram for malignant neoplasm of breast from Last 3 Months or Most Recently Relevant to Health Maintenance Results * (ABNORMAL) PAP IG LB +HPV APTIMA REFLEX 16,18/45 (07/31/2024 4:39 PM ORGAN ASSEMBLER) Diagnosis Comment(A) [facility] ACCOUNT BILL Comment: EPITHELIAL [...] by Comment [facility] ACCOUNT BILL Comment:Amish Chapman, Grade Checker (ASCP) Electronically Signed by Comment [facility] ACCOUNT [...] UTERINE CERVIX / Unknown 07/31/2024 4:39 PM ORGAN ASSEMBLER 07/31/2024 Comment:Cervix Release to [facility] Narrative [facility] ACCOUNT BILL - 08/05/2024 3:07 PM ORGAN ASSEMBLER Performed at: - [facility] [id number] Filter Press Supervisor: Hansa Hidalgo MD, Phone: [phone] Performed at: - [facility] [id number] Filter Press Supervisor: Hansa Hidalgo MD, Phone: [phone] Specimen Comment: [id number] Specimen Comment: No. of containers..01 ThinPrep Vial Imer Mccain MD LAB - PATHOLOGY/[facility] Final Result [facility] ACCOUNT BILL [address] [place] [address] * MAMMO BILAT SCREENING (04/09/2021) Anatomical Region Laterality Modality Breast Bilateral Mammography 04/09/2021 us Imer Mccain MD MAMMO ORDERABLES Final Result from Last 3 Months or Most Recently Relevant to Health Maintenance Insurance [employer] [facility] [facility] Care Teams Salesperson Yard Goods Relationship Specialty Start Date End Date Sylvain Mancia MD [address] [place] [address] PCP - General Family Medicine 11/09/22 Imer Mccain MD [facility] [address] Obstetrics and Gynecology 08/26/22 Terence Bazan MD [address] [facility] [address] [place] [address] Consulting Physician Urogynecology 08/26/22
--- OUTSIDE RECORDS SUMMARY | 2025-07-10 05:58 | XMS_ITS | Data Portability ---
Author Organization [place] - [facility] [employer] [facility], [facility] Address [address] [facility] [address] [place] [phone] Assessment No assessment recorded. Plan of Treatment Reminders Order Date Submit Date Provider Last Modified By Organization Details Last Modified Time Details Appointments None recorded. Lab None recorded. Referral None recorded. Procedures None recorded. Surgeries None recorded. Imaging XR, chest 2023 [facility], [address], [address], [place], [address], 4 10:29:18 Medication Orders dexamethaso ne sodium phosphate 10 mg/mL injection solution 2023 024 [email or web address] Not available 4 14:23:43 ipratropium 0.5 mg-albutero l 3 mg (2.5 mg base)/3 mL nebulizatio n soln 2023 024 [email or web address] Not available 4 14:23:43 doxycycline monohydrate 100 mg capsule 2023 [facility][id number], [address] [facility] [employer] [place] [place], [id number], 4 13:52:13 albuterol sulfate HFA 90 mcg/actuati on aerosol inhaler 2023 024 [facility] [facility] #[id number], [address] [facility] [employer] [place], [id number], 13:52:13 prednisone 20 mg tablet 2023 [facility] #[id number], [address] [place], [place], [id number], 14:12:07 Patient TargetsNo targets recorded. Patient Instructions Encounter Date Encounter Id Patient Instructions Last Modified By Organization Details Last Modified Time 07/03/2024 [id number] Discharge Instructions Not available 07/03/2024 14:12:13 - Ensure proper hydration - If you experience worsening symptoms discussed go to the ER. - Follow up with your primary care provider in 3-5 days for re-evaluation, sooner if needed. [email or web address] Not available 07/03/2024 14:13:12 Reason for Referral None Reported. Results Created Date Observation Date Name Description Value Unit Range Abnormal Flag Note LastModifiedBy Organization Detail LastModifiedTime 07/03/2007/03/2024 XR, chest No observ ation record ed. [email or web address] [facility] [address] [facility] [address], [place], [address], 07/09/2024 10:29:02 07/03/20 XR, chest No observ ation record ed. [email or web address] [facility] [address] [facility] [address], [place], [address], 07/03/2024 18:17:23 Result Notes None recorded. Problems Name Problem SNOMED Code Status Onset Date Resolution Date Notes Provider Name and Address Organization Details Recorded Time Asthma 387757427 Active 024 [facility] [place], [facility] 07/03/2024 13:31:21 Problem Notes None recorded. Procedures Surgical History Date Name Laterality Status Provider Name and Address Organization Details Recorded Time 07/03/20 Nebulizer Treatment completed [facility] [address], [place], [address], [facility], [facility] 07/03/2024 14:13:04 Imaging Results None recorded. Procedure Notes None recorded. Medical Equipment None Reported. Allergies Allergen ID Allergen Name Allergen Category Reaction Reaction Severity Criticality Documentation Date Start Date Code Code System Note Provider Name and Address Organization Details Recorded Time 43329 Substance with sulfonami de structure and antibacte rial mechanism of action (substanc e) medicatio n rash Not available Not available 07/03/2024 21324 8003 SNOMED [facility], [place] - [facility] 13:30:06 Medications Name Sig Start Date Stop Date Status Note LastModified by Organization Details LastModified Time ipratropium 0.5 mg-albutero l 3 mg (2.5 mg base)/3 mL nebulizatio n soln Inhale 3 mL by nebulizat ion route. 2023 active Not Available Not Available Not Avai lable prednisone 20 mg tablet TAKE 2 TABLETS BY MOUTH EVERY DAY IN THE MORNING FOR 4 DAYS active Not Available Not Available No t Available ofloxacin 0.3 % ear drops INSTILL 5 DROPS TO AFFECTED EAR EVERY 8 HOURS FOR 7 DAYS 07/03 completed Not Available Not Available Not Available amoxicillin 875 mg tablet TAKE 1 TABLET BY MOUTH EVERY 12 HOURS FOR 10 DAYS 07/03 completed Not Available Not Available Not Available doxycycline monohydrate 100 mg capsule TAKE 1 CAPSULE BY MOUTH TWICE DAILY FOR 10 DAYS active Not Available Not Available No t Available dextroamphe tamine-amph etamine 15 mg tablet TAKE 1 TABLET BY MOUTH TWICE DAILY 4 TO 6 HOURS APART active Not Available Not Available No t Available montelukast 10 mg tablet TAKE 1 TABLET BY MOUTH DAILY active Not Available Not Available No t Available albuterol sulfate HFA 90 mcg/actuati on aerosol inhaler INHALE 2 PUFFS BY MOUTH EVERY 4 HOURS NEEDED active Not Available Not Available No t Available dexamethaso ne sodium phosphate 10 mg/mL injection solution Take 10 mg by injection route. 2023 active Not Available Not Available Not Avai lable doxycycline hyclate 100 mg tablet TAKE 1 TABLET BY MOUTH DAILY 07/03 completed Not Available Not Available Not Available amoxicillin 875 mg-potassiu m clavulanate 125 mg tablet TAKE 1 TABLET BY MOUTH TWICE DAILY UNTIL ALL TAKEN 07/03 completed Not Available Not Available Not Available azelaic acid 15 % topical gel APPLY TO FACE TWICE DAILY 07/03 completed Not Available Not Available Not Available nitrofurant oin monohydrate /macrocryst als 100 mg capsule TAKE 1 CAPSULE BY MOUTH EVERY 12 HOURS FOR 5 DAYS 07/03 completed Not Available Not Available Not Available duloxetine 20 mg capsule,del ayed release TAKE 1 CAPSULE BY MOUTH DAILY active Not Available Not Available No t Available Symbicort 80 mcg-4.5 mcg/actuati on HFA aerosol inhaler INHALE 2 PUFFS BY MOUTH TWICE DAILY active Not Available Not Available No t Available Vitals Date Recorded Oxygen saturation Heart rate Provider Name and Address Organization Details Last Updated DateTime 07/03/2024 96 % 100 /min [facility] [address], [place], [address], [facility] 07/03/2024 14:13:24 Date Recorded Heart rate Respiratory rate Oxygen saturation Body temperature Body height Body weight Systolic And Diastolic Provider Name and Address Organization Details Last Updated DateTime 115 /min 20 /min 94 % 97.8 [degF] 162.56 cm 78828.8 6 g 132/89 mm[Hg] Loretta Mesa [facility] 13:29:40 Social History Question Answer Notes LastModified by Organizat ion Details LastModified Time Tobacco Smoking Status Never Smoker [facility] 07/03/2024 13:31:29 Alcohol Use None [place] [address] Information n ot available 07/03/2024 Sex: Unknown Functional Status None recorded. Mental Status None recorded. Family History Nothing Reported. Medical History Condition Response Anxiety/Depression Y ADHD Y Gynecological HistoryNo gynecological history recorded. Obstetrics History GPAL:G 0 P 0 0 0 0 Past Encounters Encounter ID Performer Location Encounter Start Date Encounter Closed Date Diagnosis/Indication Diagnosis SNOMED-CT Code Diagnosis ICD10 Code Diagnosis IMO Codes Diagnosis Note [id number] [facility] [address] [facility] [place] [address] 07/03/2024 13:04:17 07/03/2024 14:18:26 Nasal congestion 86846054 R09.81 Exacerbati on of intermittent asthma 989736298 J45.21 Persistent cough 1824588 02 R05.3 Health Concerns Section Related Observation LastModified by Organization Detai ls LastModified Time None Recorded Concern Status LastModified by Organization Details LastModified Time None Recorded Advance Directives Directive None Recorded Payers Insurance Date Sequence Insurance Name Policy Number Policy Maldonado Covered Member ID Maldonado Member ID Guarantor Name 07/03/2024 1 [facility] Cecilia Masonr [id number] Cecilia Reynoldserger 07/03/2024 2 [facility] [id number] Laith Lucas [id number] 2000 Cecilia Reynoldsergepeña Notes Date Note Type Note Provider Name and Address Organization Details Recorded Time 07/03/2024 text/html AsthmaReported b y PatientHPIFor quality, patient reportstightness,cou gh, andwheezing. For severity, patient reportssymptoms cause awakening from sleepbut reportsused nebulizer 2 times for this episode. For onset/duration, patient reports1 day(s) ago. For timing, patient reportsconstant. For status, patient reportssame. For associated symptoms, patient reportsno fever,no fatigue,no irritability,no cough,normal appetite,no changes in productivity,no shortness of breath, andno chest pain. [facility] [address], [place], [address], [facility] - [facility] [place], [facility] 07/03/2024 14:13:45 OBGyn Episode No OBEpisode recorded.
== END 2025-07-10 06:21 | disposition left against medical advice (07) ==
LOC: ANHED 05:55
PROVIDERS: Emergency Provider Emergency Medicine; PCP Family Medicine
DX: M79.602 Pain in left arm (principal)
CPT/HCPCS: 73090; 73100; 73120; 99199